=== PATIENT | female | born 1945 | race Caucasian/White ===

== ENCOUNTER 2016-08-08 18:29 | Inpatient (IN) | payer MEDICARE, OTHER ==
--- NOTE | 2016-08-08 20:35 | DIRPT ---
CLINICAL DATA: Fall, head injury hit right upper forehead EXAM: CT HEAD WITHOUT CONTRAST TECHNIQUE: Contiguous axial images were obtained from the base of the skull through the vertex without intravenous contrast. COMPARISON: None. FINDINGS: No skull fracture is noted. No intracranial hemorrhage, mass effect or midline shift. No acute cortical infarction. No mass lesion is noted on this unenhanced scan. Paranasal sinuses and mastoid air cells are unremarkable. No zygomatic fracture. IMPRESSION: No acute intracranial abnormality. Electronically Signed By: Alex Zhong M.D. On: 08/08/2016 20:33
--- NOTE | 2016-08-08 20:52 | EDPRACDOC ---
- General Chief Complaint: Wound Stated Complaint: FALL AT HOME Time Seen by Provider: 08/08/16 20:48 - History of Present Illness Onset: INCIDENT RESPONSE MANAGER HPI: PT FELL AT HOME, LAC TO FRONTAL SCALP, PT STATES SHE DOES NOT REMEMBER FALLING, PT COMPLAINS OF BILATERAL LEG SWELLING FOR UNKNOWN AMOUNT OF TIME, COMPLAINS OF PAIN IN BOTH LEGS FROM THIGHS DOWN, PT STATES THAT SHE LIVES ALONE, DOES NOT KNOW WHO CALLED EMS FOR HER. Pain Severity: Reports: Moderate Injuries/Pain Location: Reports: head Reason for Fall: Reports: unknown Loss of Consciousness: unsure Associated Symptoms (Fall): Reports: other. Denies: abdominal pain, chest pain , confusion, dizziness, headache, lightheadedness, muscle spasms, nausea/ vomiting, neck pain, ringing in ears, seizures, shortness of breath, slurred speech, trouble walking, vision changes Allergies/Adverse Reactions: Allergies No Known Allergies Allergy (Verified 08/08/16 18:49) Home Medications: Ambulatory Orders Aspirin [Chewable Aspirin] 81 mg PO DAILY 08/28/12 ED Past Medical History - History Reviewed Yes Nurses notes reviewed and agree except as marked - Patient Medical History Surgical History: Reports: Tonsillectomy/Adnoidectomy - Social Medical History Smoking Status: Never smoker ETOH: None Substance Abuse: None EDM Review of Systems - Review of Systems Constitutional: negative: Chills, Fever Eyes: negative: Blurred Vision, Double Vision Ears: negative: Drainage, Pain Throat: negative: Pain Nose: negative: Congestion, Discharge Respiratory: negative: Cough, Shortness of Breath, Wheezing Cardiovascular: Edema. negative: Chest Pain, Palpitations Gastrointestinal: negative: Diarrhea, Nausea, Pain, Vomiting Genitourinary: negative: Dysuria, Frequency Neurological: negative: Dizziness, Headache, Numbness, Weakness Musculoskeletal: No Symptoms Reported Integumentary: Wound Allergic/Immunologic: No Symptoms Reported - Physical Exam Constitutional: Alert (Awake), No apparent distress Oriented to: Time, Person, Place Last recorded Vital Signs: Last Vital Signs Temp 97.5 F 08/08/16 18:43 Pulse 82 08/08/16 18:43 Resp 20 08/08/16 18:43 BP 124/66 08/08/16 18:43 Pulse Ox 100 08/08/16 18:43 Oxygen Pulse Oxygen Saturation 100 O2 Device Room Air Oxygen Flow Rate Fraction of Inspired Oxygen ( FIO2) - HEENT Head: Laceration (1.5 CM LAC RIGHT FRONTAL SCALP, NO ACTIVE BLEEDING) Eye Exam: Normal (PERRL, EOMI, Sclera white) Oropharynx: Normal (Pharynx:Moist without exudate,Gums-no swelling) Tympanic Membrane: Normal ENT EAC: Normal TMJ: Normal Nose: No Symptoms Reported (septum midline) Neck: Normal (FROM, trachea at midline) - Respiratory/Cardiovascular Respiratory: Normal - CTA (BBS clear to auscultation without adventitious sounds ) Cardiovascular: Normal (RRR without murmur, gallop or rub) - GI Auscultation: Normal (NABS) Palpation: Normal (Soft,No rebound or guarding, non distended) Tenderness: Non tender Acevedo's Sign: Negative - Musculoskeletal Back: Normal (Non-Tender) Extremities: Edema (2 += BILATERAL LOWER EXT, ERYTHEMA TO KNEES, NO INCREASED TEMP) - Integumentary Skin: Warm, Dry, Other (SEE ABOVE) Lymphatics: Normal (no adenopathy) - Neurologic Memory Impaired: Normal Motor Function: Normal (Normal tone, Pulses 2+ No cyanosis or edema, FROM) Cranial Nerve: Normal (CN II-X11 intact sensation, strength 5/5) Cerebellar: Normal Mood Description: Normal Perception: Normal ED Injury/Fall Exam - Physical Exam Head Injury: lacerations Extremity Exam: pedal edema Skin: Warm, Dry - Casey Coma Score Best Eye Response ([place]): (4) open spontaneously Best Verbal Response ([place]): (5) oriented Best Motor Response ([place]): (6) obeys commands Casey Total: 15 ED Procedures - Suture/Laceration RIGHT FRONTAL SCALP Wound Length (cm): 1.5 Wound's Depth, Shape: linear Wound Explored: clean Irrigated w/ Saline (ccs): 20 Anesthesia: Lidocaine w/ Epi Volume Anesthetic (ccs): 5 Wound Repaired With: Biddle Number of Sutures: 4 (LEXY) Layer Closure?: No - Differential Diagnosis Contusion, Fall, ICH, SAH - Re-evaluation Re-evaluation 1 Re-evaluation Time: 22:00 (PT CONT TO COMPLAIN OF BILATERAL THIGH PAIN, PT STATES SHE DOES NOT HAVE ANYONE TO HELP HER AT HOME, STATES SHE DOES NOT REMEMBER THE LAST TIME SHE ATE.) - Results 08/08/16 21:04 08/08/16 21:04 08/08/16 22:30 Laboratory Results - last 24 hr 08/08/16 08/08/16 08/08/16 21:04 21:04 21:04 WBC 11.0 H RBC 3.34 L Hgb 9.9 L Hct 28.7 L MCV 86 MCH 29.7 MCHC 34.5 RDW 18.9 H Plt Count 478 H MPV 6.9 L Neut % (Auto) 86.3 H Lymph % (Auto) 5.6 L [place] % (Auto) 7.5 Eos % (Auto) 0.2 Baso % (Auto) 0.4 Absolute Neuts (auto) 9.46 H Absolute Lymphs (auto) 0.55 L PT 11.5 H INR 1.1 APTT 29.6 Sodium 132 L Potassium 3.9 Chloride 93 L Carbon Dioxide 27 Anion Gap 16 BUN 58 H Creatinine 2.00 H Estimated GFR (MDRD) 25 L Glucose 88 Calculated Osmolality 270 Calcium 8.8 Corrected Calcium 9.5 Total Bilirubin 0.9 AST 28 ALT 25 Alkaline Phosphatase 186 H Troponin I < 0.01 [id number] Pept 2320 H Total Protein 6.5 Albumin 3.3 L - EKG EKG #1 EKG Time: 21:10 -: Yes EKG interpreted by me Rate: bpm: 82 [place]: Normal Rhythm: NSR Block: None Hypertrophy: None ST: Nonsp Comments: NO OLD EKG FOR COMPARISON - Diagnostic Imaging CT HEAD Image interpreted by: Radiologist CT HEAD WITHOUT CONTRAST TECHNIQUE: Contiguous axial images were obtained from the base of the skull through the vertex without intravenous contrast. COMPARISON: None. FINDINGS: No skull fracture is noted. No intracranial hemorrhage, mass effect or midline shift. No acute cortical infarction. No mass lesion is noted on this unenhanced scan. Paranasal sinuses and mastoid air cells are unremarkable. No zygomatic fracture. IMPRESSION: No acute intracranial abnormality. CXR Image interpreted by: Radiologist PORTABLE CHEST 1 VIEW COMPARISON: Chest x-ray 03/19/2016. FINDINGS: Lung volumes are low. No consolidative airspace disease. No pleural effusions. No pneumothorax. No pulmonary nodule or mass noted. Pulmonary vasculature and the cardiomediastinal silhouette are within normal limits. Right internal jugular single-lumen deb cath with tip terminating in the mid superior vena cava. IMPRESSION: 1. 1. Low lung volumes without radiographic evidence of acute cardiopulmonary disease. 2. Atherosclerosis. - Additional Information OLD CHART REVIEWED, HOME HEALTH NURSING NOTE FROM MAR 2016 STATES THAT PT LIVES IN "HOARDING SITUATION", HOUSE VERY UNKEPT AND DANGEROUS WITH MULTIPLE FALL HAZARDS, MADE MENTION OF SEEKING [facility] PLACEMENT. PT STATES THAT NO ONE EVER TALKED TO HER ABOUT [facility] PLACEMENT. DISCUSSED WITH DR FREDERICK, HE WILL DISCUSS WITH THE HOSPITALIST - Departure Condition: Stable Final Diagnosis: Bilateral lower extremity edema, Cellulitis of both lower extremities, SCALP LAC, 1.5 CM, SIMPLE Accidental fall Qualifiers: Encounter type: initial encounter Qualified Code(s): W19.XXXA - Unspecified fall, initial encounter Education/Counseling Given To: Patient Education/Counseling Given Regarding: Diagnosis, Treatment, Prognosis, Follow Up Referrals: None,No Provider [Primary Care Provider] - One Week
[2016-08-08] MEDS ORDERED: SODIUM CHLORIDE 0.9% 10 ML FLUSH FLUSH PRN (20:53)
[2016-08-08 21:13] LABS: AUTOMATED BASOPHIL 0.4 % (0-2); AUTOMATED EOSINOPHIL 0.2 % (0-5); AUTOMATED LYMPH 5.6 % (17-44); AUTOMATED MONOCYTE 7.5 % (3-10); AUTOMATED NEUTROPHIL 86.3 % (45-76); MPV 6.9 fL (7.4-10.4)
--- NOTE | 2016-08-08 21:15 | DIRPT ---
CLINICAL DATA: 70-year-old female with history of trauma from a fall with laceration of the frontal scalp. Bilateral leg swelling. EXAM: PORTABLE CHEST 1 VIEW COMPARISON: Chest x-ray 03/19/2016. FINDINGS: Lung volumes are low. No consolidative airspace disease. No pleural effusions. No pneumothorax. No pulmonary nodule or mass noted. Pulmonary vasculature and the cardiomediastinal silhouette are within normal limits. Right internal jugular single-lumen deb cath with tip terminating in the mid superior vena cava. IMPRESSION: 1. 1. Low lung volumes without radiographic evidence of acute cardiopulmonary disease. 2. Atherosclerosis. Electronically Signed By: Hieu Vásquez M.D. On: 08/08/2016 21:13
[2016-08-08 21:25] LABS: BLOOD UREA NITROGEN 58 MG/DL (7-17); CALC CORRECTED 9.5 MG/DL (8.4-10.2); CALCIUM 8.8 MG/DL (8.4-10.2); CALCULATED OSMOLALITY 270 MOs/Kg (270-290); CHLORIDE 93 mEq/L (98-107); GLUCOSE 88 MG/DL (70-99); SODIUM LEVEL 132 mEq/L (137-146); TOTAL PROTEIN 6.5 G/DL (6.3-8.2)
[2016-08-08 21:32] LABS: PARTIAL THROMB. TIME 29.6 SEC (22-35); PT-INR 1.1
[2016-08-08] MEDS ORDERED: OXYCODONE HCL 5 MG TABLET PO ONE (21:46)
[2016-08-08] MEDS ORDERED: Lidocaine 2%-Epinephrine 1:100,000 20ml vial INF ONE (21:46)
[2016-08-08] MEDS ORDERED: BENZONATATE 100 MG PERLES PO PRN (23:00)
[2016-08-08] MEDS ORDERED: METOCLOPRAMIDE 10 MG/2 ML VIAL IV PRN (23:00)
[2016-08-08] MEDS ORDERED: ONDANSETRON HCL 4 MG/2 ML VIAL IV PRN (23:00)
[2016-08-08] MEDS ORDERED: NS 1,000 ML IV ONE (23:00)
[2016-08-08] MEDS ORDERED: NS IV ONE (23:00)
[2016-08-08] MEDS ORDERED: ACETAMINOPHEN 650 MG SUPP PR PRN (23:00)
[2016-08-08] MEDS ORDERED: SODIUM CHLORIDE 0.9% 3 ML FLUSH FLUSH PRN (23:00)
[2016-08-08] MEDS ORDERED: AMPICILLIN SULBACTAM IV ONE (23:00)
[2016-08-08] MEDS ORDERED: Albuterol/Ipratropium Neb 3 ML NEB NEB PRN (23:00)
[2016-08-08] MEDS ORDERED: DOCUSATE-SENNA CONCENTRATE TAB PO PRN (23:00)
--- NOTE | 2016-08-08 23:27 | HISTPHYS ---
- Chief Complaint syncope - History of Present Illness Elizabeth Lopez is a 70 year old woman who appears much older. She lives at home alone, but is severely demented and has been seen to be incapable of caring for herself. A neighbor checked on her this evening and found her lying on the floor with a cut on her head. Her house is extremely cluttered, the patient does not clean it and apparently either hoards things or has lost the ability to sort and prioritize use of her possessions. A report from the physical therapist who made a home health visit in March of last year provides some additional history to corroborate the neighbor's report. Adult protective services was informed at that time. The patient is unable to give any useful history. she did not remember falling, can not tell where she lives , does not know the date, does not know any of her past medical history. We have a written report stating that she had a left hip fracture last fall and bone mets to her spine at that time, although the primary is not clear in the report. The patient has a port-a-cath. She did not remember that she had a port-a-cath, does not know why she has it, can not recall ever having had surgery. She does not know what type of cancer she had. She does not know the names of her doctors. She did hit her head and possibly lost consciousness for an unknown period of time. The neighbor is not certain if she was alert or unconscious when she first found her. The laceration to her right forehead has been repaired in the ED. No fracture or subdural hematoma or intracranial hemorrhage is evident on CT scan. - Medical History Cardiac History: Reports: No Significant History Respiratory History: Reports: No Significant History GI/ History: Reports: No Significant History Musculoskeletal History: Reports: Osteoarthritis (s/p L hip fracture- probably pathologic from cancer), Other Systemic History: Reports: Cancer (unknown primary, mets to spine, hip) Neurological History: Reports: Dementia Psychological History: Denies: Depression - Surgical History Reports: Hysterectomy, Tonsillectomy/Adnoidectomy, Other (L hip ORIF, portacath) - Medictions/Allergies Allergies No Known Allergies Allergy (Verified 08/08/16 18:49) Current Medication List: Reviewed Home Medications Aspirin [Chewable Aspirin] 81 mg PO DAILY 08/28/12 - Family History Reports: Other (unable to obtain) - Social History Travel Outside of [place] in the Last 3 Months?: No Lives: Alone Smoking Status: Never smoker Social History: Denies: Alcohol Use - Review of Systems Yes Review of systems cannot be obtained due to the patient's medical condition - Physical Exam Vital Signs: Initial Vitals Temperature 97.5 F 08/08/16 18:43 Pulse Rate 82 08/08/16 18:43 Respiratory Rate 20 08/08/16 18:43 Blood Pressure 124/66 08/08/16 18:43 Pulse Oxygen Saturation 100 08/08/16 18:43 Constitutional: No apparent distress, Cachectic, Confused Oriented to: Person - HEENT Head: Laceration (R restorationist 5 cm- closed with crystal), Swelling (hematoma), Tender Eye: Normal (PERRL: EOMI) Oropharynx: Normal, Membranes Dry, Other (dentures). negative: Drooling, Exudate, Red Tympanic Membrane: Dull ENT EAC: Normal Nose: No Symptoms Reported. negative: Bleeding, Congestion, Discharge, Deformity Respiratory: Normal - CTA Cardiovascular: Normal (regular rhythm and rate, no JVD or carotid bruits, has portacath in R subclavian area). negative: Diastolic murmur, Systolic murmur - GI Auscultation: Normal Palpation: Normal (obese, soft, poor muscle tone, no palpable mass or fluid wave ). negative: Enlarged liver, Enlarged spleen Tenderness: Non tender Acevedo's Sign: Negative Rectal Exam: Normal, Heme negative stool. negative: Mass Stool: Brown - Musculoskeletal Back: Normal, No Palpable Step-off Extremities: Edema (4+ edema feet to knees bilaterally,with significant erythematous rash), Pedal Edema, Other (erythematous rash on distal legs, inflamed confluent areas) Spine: full range of motion, normal alignment, normal inspection - Integumentary Skin: Warm, Dry, Rash (erythematous rash on distal legs, inflamed confluent areas) Lymphatics: Normal - Neurologic Memory Impaired: Short-term, Long-term Motor Function: Unable to Test Cranial Nerve: Normal Cerebellar: Unable to Test Mood Description: Flat Thought: Rambling Conversation Perception: Other (child-like, very simple, has difficulty processing 2 or 3 step directions.) - Focused CV Perfusion Exam Vital Signs: Last Vital Signs Temp 97.5 F 08/08/16 18:43 Pulse 83 08/08/16 21:51 Resp 24 01/18/17 21:51 BP 126/60 08/08/16 21:51 Pulse Ox 100 08/08/16 21:51 - Lab Results Laboratory Tests 08/08/16 08/08/16 08/08/16 21:04 21:04 21:04 WBC 11.0 H Hgb 9.9 L Hct 28.7 L RDW 18.9 H Plt Count 478 H Neut % (Auto) 86.3 H Lymph % (Auto) 5.6 L [place] % (Auto) 7.5 PT 11.5 H INR 1.1 APTT 29.6 Sodium 132 L Potassium 3.9 Chloride 93 L Carbon Dioxide 27 Anion Gap 16 BUN 58 H Creatinine 2.00 H Estimated GFR (MDRD) 25 L Calculated Osmolality 270 Corrected Calcium 9.5 AST 28 ALT 25 Alkaline Phosphatase 186 H Troponin I < 0.01 Fih-[id number]-[id number] Pept 2320 H Total Protein 6.5 Albumin 3.3 L Urine Color Urine Clarity Urine pH Ur Specific [place] Urine Protein Urine Glucose (UA) Urine Ketones Urine Nitrite Urine RBC Urine WBC Urine WBC Clumps Ur Renal Epithelial Cell Urine Bacteria 08/08/16 23:20 WBC Hgb Hct RDW Plt Count Neut % (Auto) Lymph % (Auto) [place] % (Auto) PT INR APTT Sodium Potassium Chloride Carbon Dioxide Anion Gap BUN Creatinine Estimated GFR (MDRD) Calculated Osmolality Corrected Calcium AST ALT Alkaline Phosphatase Troponin I [id number] Pept Total Protein Albumin Urine Color Yellow Urine Clarity Hazy Urine pH 5.0 Ur Specific [place] 1.035 Urine Protein 1+ H Urine Glucose (UA) Neg Urine Ketones 1+ H Urine Nitrite Neg Urine RBC 2-5 Urine WBC 40-50 H Urine WBC Clumps Present H Ur Renal Epithelial Cell Occ H Urine Bacteria 1+ H - Diagnostic Findings CXR: IMPRESSION: 1. 1. Low lung volumes without radiographic evidence of acute cardiopulmonary disease. 2. Atherosclerosis. Electronically Signed By: Hieu Vásquez M.D. On: 08/08/2016 21:13 EKG: sinus rhythm, 82 bpm, nonspecific ST-changes CT Head: FINDINGS: No skull fracture is noted. No intracranial hemorrhage, mass effect or midline shift. No acute cortical infarction. No mass lesion is noted on this unenhanced scan. Paranasal sinuses and mastoid air cells are unremarkable. No zygomatic fracture. IMPRESSION: No acute intracranial abnormality. Electronically Signed By: Alex Zhong M.D. On: 08/08/2016 20:33 - Assessment (1) Acute renal failure N17.9 - ACUTE KIDNEY FAILURE, UNSPECIFIED Acute Present on Admission: Yes Qualifiers: Acute renal failure type: with other specified pathological lesion Qualified Code(s): N17.8 - Other acute kidney failure Admit, start IV fluids. Begin appropriate medications for HCVD and to enhance renal perfusion. Follow renal function daily. Patient also needs diuresis due to her severe venous stasis in her lower extremities. (2) Cellulitis of both lower extremities L03.115 - CELLULITIS OF RIGHT LOWER LIMB; L03.116 - CELLULITIS OF LEFT LOWER LIMB Acute Present on Admission: Yes Obtain blood cultures, begin antibiotics. (3) Anemia D64.9 - ANEMIA, UNSPECIFIED Acute Present on Admission: Yes Qualifiers: Anemia type: other cause Iron deficiency anemia type: I Vitamin B12 deficiency anemia type: V Folate deficiency anemia type: F Bone marrow failure anemia type: B Hemolytic anemia type: H Other causes of anemia: chronic disease, neoplastic Qualified Code(s): D63.0 - Anemia in neoplastic disease Monitor H/H to be sure patient is not bleeding; check stools for occult blood. (4) FTT (failure to thrive) in adult R62.7 - ADULT FAILURE TO THRIVE Acute Present on Admission: Yes Patient is not capable of caring for herself; needs placement in extended care facility. (5) Dementia associated with other underlying disease F02.80 - DEMENTIA IN OTH DISEASES CLASSD ELSWHR W/O BEHAVRL DISTURB Acute Present on Admission: Yes Qualifiers: Dementia behavioral disturbance: without behavioral disturbance Qualified Code(s): F02.80 - Dementia in other diseases classified elsewhere without behavioral disturbance Severe dementia, patient is not capable of self care. If family members can not be located, may need to seek/appoint a legal guardian. (6) Accidental fall W19.XXXA - UNSPECIFIED FALL, INITIAL ENCOUNTER Acute Present on Admission: Yes Qualifiers: Encounter type: initial encounter Qualified Code(s): W19.XXXA - Unspecified fall, initial encounter Has laceration of forehead which has been repaired. Do neurochecks q 4 hr x 48 hr, then maintain vigilance for delayed effects of concussion. Case Care Discussed with: Nursing Staff, Resource Management Total Time: 65 min Critical Care: No Couseling Time (>50% in counseling/coordination): No Code: 01648
[2016-08-09 00:18] LABS: RENAL EPITH OCC; WBC/URINE 40-50 (0-5)
[2016-08-09 00:24] LABS: LEUKOCYTES/URINE 3+ (NEGATIVE); NITRITE/URINE NEG (NEGATIVE); URINE OCCULT BLOOD NEG (NEG/TRACE)
[2016-08-09] MEDS: ENOXAPARIN 40 MG/0.4 ML PFS SQ SCH ×2 (01:50→17:24)
[2016-08-09] MEDS: Albuterol/Ipratropium Neb 3 ML NEB NEB SCH ×4 (02:44→20:15)
[2016-08-09] MEDS: NS 1,000 ML IV SCH ×2 (04:42→14:39)
[2016-08-09] MEDS: SODIUM CHLORIDE 0.9% 3 ML FLUSH FLUSH SCH ×2 (05:08→16:45)
[2016-08-09 05:27] LABS: AUTOMATED BASOPHIL 0.5 % (0-2); AUTOMATED LYMPH 4.8 % (17-44); AUTOMATED MONOCYTE 7.8 % (3-10); AUTOMATED NEUTROPHIL 85.9 % (45-76); MPV 6.9 fL (7.4-10.4)
[2016-08-09 05:33] LABS: BLOOD UREA NITROGEN 54 MG/DL (7-17); CALCIUM 8.1 MG/DL (8.4-10.2); CALCULATED OSMOLALITY 269 MOs/Kg (270-290); CHLORIDE 96 mEq/L (98-107); GLUCOSE 75 MG/DL (70-99); SODIUM LEVEL 132 mEq/L (137-146)
--- NOTE | 2016-08-09 10:17 | GENMEDPROG ---
Chief Complaint: Feels okay. Mild confusion. However she knows that she is in [facility]. Appears chronically ill Notes Reviewed: Yes Events from last night noted and discussed with Clinical Staff Current Medication List: Reviewed Currently: Denies: Cough, Wheezing, FONSECA, SOB - Physical Examination Vital Signs and I&O: Last Vital Signs Temp 97.6 F 08/09/16 09:20 Pulse 88 08/09/16 09:20 Resp 16 08/09/16 09:20 BP 112/58 L 08/09/16 09:20 Pulse Ox 98 08/09/16 09:20 Oxygen Pulse Oxygen Saturation 98 O2 Device Room Air Oxygen Flow Rate Fraction of Inspired Oxygen ( FIO2) Intake & Output 08/06/16 08/07/16 08/08/16 08/09/16 23:59 23:59 23:59 23:59 Intake Total 1456 Output Total 310 Balance 1146 Patient's weight 81.873 kg General: Alert, Cooperative, No acute distress. negative: Oriented x3 (Very mild confusion), Well appearing (Chronically ill-appearing) HEENT: Normal, PERRLA, EOMI, Anicteric Sclera Neck: Non-tender, Full range of motion, Normal Trachea alignment, Normal inspection. negative: JVD Lymphatics: Normal. negative: Adenopathy Respiratory: Normal - CTA Cardiovascular: Regular rate and rhythm, No Gallops,Rubs/Murmurs GI: Normal bowel sounds, Non tender, No hepatospenomegaly, No masses Extremities/Musculoskeletal: Normal pulses. negative: Tenderness, Swelling, Edema Skin: Warm,Dry and Intact, No breakdown, No significant lesion, Rash, Erythema ( cellulitis with stasis dermatitis), Warmth. negative: No rashes Neurological: Normal speech, Strength at 5/5 X4 ext, Normal tone, Cranial nerves 3-12 NL Psych/Mental Status: Appropriate, Normal Affect, Cooperative Lab/DI/Studies Reviewed: Laboratory Results - last 24 hr 08/08/16 08/08/16 08/08/16 21:04 21:04 21:04 WBC 11.0 H RBC 3.34 L Hgb 9.9 L Hct 28.7 L MCV 86 MCH 29.7 MCHC 34.5 RDW 18.9 H Plt Count 478 H MPV 6.9 L Neut % (Auto) 86.3 H Lymph % (Auto) 5.6 L Parker % (Auto) 7.5 Eos % (Auto) 0.2 Baso % (Auto) 0.4 Absolute Neuts (auto) 9.46 H Absolute Lymphs (auto) 0.55 L PT 11.5 H INR 1.1 APTT 29.6 Sodium 132 L Potassium 3.9 Chloride 93 L Carbon Dioxide 27 Anion Gap 16 BUN 58 H Creatinine 2.00 H Estimated GFR (MDRD) 25 L Glucose 88 Calculated Osmolality 270 Calcium 8.8 Corrected Calcium 9.5 Total Bilirubin 0.9 AST 28 ALT 25 Alkaline Phosphatase 186 H Troponin I < 0.01 [id number]-D-[id number] Pept 2320 H Total Protein 6.5 Albumin 3.3 L Urine Color Urine Clarity Urine pH Ur Specific [place] Urine Protein Urine Glucose (UA) Urine Ketones Urine Occult Blood Urine Nitrite Urine Bilirubin Urine Urobilinogen Ur Leukocyte Esterase Urine RBC Urine WBC Urine WBC Clumps Ur Epithelial Cells Ur Renal Epithelial Cell Urine Bacteria Hyaline Casts 08/08/16 08/09/16 08/09/16 23:20 01:40 05:00 WBC RBC Hgb Hct MCV MCH MCHC RDW Plt Count MPV Neut % (Auto) Lymph % (Auto) Parker % (Auto) Eos % (Auto) Baso % (Auto) Absolute Neuts (auto) Absolute Lymphs (auto) PT INR APTT Sodium Potassium Chloride Carbon Dioxide Anion Gap BUN Creatinine Estimated GFR (MDRD) Glucose Calculated Osmolality Calcium Corrected Calcium Total Bilirubin AST ALT Alkaline Phosphatase Troponin I < 0.01 < 0.01 Jtp-L-Lwmxsytxlod Pept Total Protein Albumin Urine Color Yellow Urine Clarity Hazy Urine pH 5.0 Ur Specific [place] 1.035 Urine Protein 1+ H Urine Glucose (UA) Neg Urine Ketones 1+ H Urine Occult Blood Neg Urine Nitrite Neg Urine Bilirubin Neg Urine Urobilinogen 0.2 Ur Leukocyte Esterase 3+ H Urine RBC 2-5 Urine WBC 40-50 H Urine WBC Clumps Present H Ur Epithelial Cells 3+ Ur Renal Epithelial Cell Occ H Urine Bacteria 1+ H Hyaline Casts 2-5 H 08/09/16 08/09/16 05:00 05:00 WBC 9.8 RBC 3.02 L Hgb 8.8 L D Hct 26.4 L MCV 87 MCH 29.3 MCHC 33.5 RDW 19.0 H Plt Count 414 H MPV 6.9 L Neut % (Auto) 85.9 H Lymph % (Auto) 4.8 L Parker % (Auto) 7.8 Eos % (Auto) 1.0 Baso % (Auto) 0.5 Absolute Neuts (auto) 8.33 H Absolute Lymphs (auto) 0.39 L PT INR APTT Sodium 132 L Potassium 3.6 Chloride 96 L Carbon Dioxide 29 Anion Gap 11 BUN 54 H Creatinine 1.80 H Estimated GFR (MDRD) 28 L Glucose 75 Calculated Osmolality 269 L Calcium 8.1 L Corrected Calcium Total Bilirubin AST ALT Alkaline Phosphatase Troponin I Ymc-M-Ubxwlocgziu Pept Total Protein Albumin Urine Color Urine Clarity Urine pH Ur Specific [place] Urine Protein Urine Glucose (UA) Urine Ketones Urine Occult Blood Urine Nitrite Urine Bilirubin Urine Urobilinogen Ur Leukocyte Esterase Urine RBC Urine WBC Urine WBC Clumps Ur Epithelial Cells Ur Renal Epithelial Cell Urine Bacteria Hyaline Casts - Assessment (1) Cellulitis of both lower extremities Acute L03.115 - CELLULITIS OF RIGHT LOWER LIMB; L03.116 - CELLULITIS OF LEFT LOWER LIMB Comment/Plan: Continue antibiotics, leg elevation. Treat edema. Likely significant component of stasis dermatitis as opposed to acute cellulitis. (2) Accidental fall Acute W19.XXXA - UNSPECIFIED FALL, INITIAL ENCOUNTER Qualifiers: Encounter type: initial encounter Qualified Code(s): W19.XXXA - Unspecified fall, initial encounter Comment/Plan: Has laceration of forehead which has been repaired. Do neurochecks q 4 hr x 48 hr, then maintain vigilance for delayed effects of concussion. (3) Acute renal failure Acute N17.9 - ACUTE KIDNEY FAILURE, UNSPECIFIED Qualifiers: Acute renal failure type: with other specified pathological lesion Qualified Code(s): N17.8 - Other acute kidney failure Comment/Plan: Concerned that there may be a chronic component. Creatinine is slightly better today decreasing from 2.0 down to 1.8. Continue to monitor (4) Anemia Acute D64.9 - ANEMIA, UNSPECIFIED Qualifiers: Anemia type: other cause Iron deficiency anemia type: I Vitamin B12 deficiency anemia type: V Folate deficiency anemia type: F Bone marrow failure anemia type: B Hemolytic anemia type: H Other causes of anemia: chronic disease, neoplastic Qualified Code(s): D63.0 - Anemia in neoplastic disease Comment/Plan: This is significant. With hydration she has dropped down to 8.8. Does not appear to be actively bleeding. Hemoccult stools and check iron panel B12 and folates. (5) Bilateral lower extremity edema Acute R60.0 - LOCALIZED EDEMA Comment/Plan: This is moderate to severe appears more chronic. Likely component of dependent stasis edema and dermatitis (6) Dementia associated with other underlying disease Acute F02.80 - DEMENTIA IN OTH DISEASES CLASSD ELSWHR W/O BEHAVRL DISTURB Qualifiers: Dementia behavioral disturbance: without behavioral disturbance Qualified Code(s): F02.80 - Dementia in other diseases classified elsewhere without behavioral disturbance Comment/Plan: More oriented today. She knows that she is in the hospital in [place]. Cognition does appear slow but she states that she still drives and is able to go to the store and get food and care for herself. Physical therapy evaluation for strength and mobility. Continue to monitor mental status. (7) FTT (failure to thrive) in adult Acute R62.7 - ADULT FAILURE TO THRIVE Comment/Plan: Treat above issues. Physical therapy and occupational therapy evaluations to assess functional capacity. Case Care Discussed with: Patient, Nursing Staff, Resource Management
[2016-08-09 10:51] LABS: % SATURATION 10.1 % (15-50)
[2016-08-09] MEDS: NS IV SCH ×2 (11:02→22:25)
[2016-08-09] MEDS: AMPICILLIN SULBACTAM IV SCH ×2 (11:02→22:25)
[2016-08-09] MEDS ORDERED: METOCLOPRAMIDE 10 MG/2 ML VIAL IV PRN (11:35)
[2016-08-09 11:49] LABS: FOLATES 3.81 ng/mL (>2.76)
[2016-08-09] MEDS ORDERED: Vaccine Screening Complete SCH (12:00)
[2016-08-09] MEDS: SIMETHICONE 80 MG TAB PO PRN (20:07)
[2016-08-09] MEDS: ACETAMINOPHEN 325 MG/TAB TABLET PO PRN (20:36)
[2016-08-09] MEDS: TEMAZEPAM 15 MG CAP PO PRN (22:23)
[2016-08-10] MEDS: NS 1,000 ML IV SCH ×4 (00:21→22:34)
[2016-08-10] MEDS: Albuterol/Ipratropium Neb 3 ML NEB NEB SCH ×3 (02:05→14:30)
[2016-08-10] MEDS: SODIUM CHLORIDE 0.9% 3 ML FLUSH FLUSH SCH ×2 (05:12→17:12)
[2016-08-10 07:23] LABS: BLOOD UREA NITROGEN 41 MG/DL (7-17); CALCIUM 8.1 MG/DL (8.4-10.2); CALCULATED OSMOLALITY 265 MOs/Kg (270-290); CHLORIDE 99 mEq/L (98-107); GLUCOSE 78 MG/DL (70-99); SODIUM LEVEL 133 mEq/L (137-146)
[2016-08-10] MEDS ORDERED: FERUMOXYTOL 510 MG in NS 100 ML IV ONE (09:00)
[2016-08-10] MEDS: ACETAMINOPHEN 325 MG/TAB TABLET PO PRN (09:48)
[2016-08-10] MEDS: NS IV SCH ×3 (09:55→21:15)
[2016-08-10] MEDS: AMPICILLIN SULBACTAM IV SCH ×3 (09:55→21:15)
--- NOTE | 2016-08-10 14:22 | GENMEDPROG ---
Chief Complaint: Doing better. Appears chronically ill. Currently: Denies: Cough, Wheezing, FONSECA, SOB - Physical Examination Vital Signs and I&O: Last Vital Signs Temp 97.6 F 08/10/16 06:00 Pulse 74 08/10/16 06:00 Resp 18 08/10/16 06:00 BP 114/63 08/10/16 06:00 Pulse Ox 100 08/10/16 06:00 Oxygen Pulse Oxygen Saturation 100 O2 Device Room Air Oxygen Flow Rate Fraction of Inspired Oxygen ( FIO2) Intake & Output 08/07/16 08/08/16 08/09/16 08/10/16 23:59 23:59 23:59 23:59 Intake Total 3973 1271 Output Total 910 275 Balance 3063 996 Patient's weight 81.873 kg 82.781 kg General: Alert, Cooperative, No acute distress. negative: Oriented x3 (Very mild confusion), Well appearing (Chronically ill-appearing) HEENT: Normal, PERRLA, EOMI, Anicteric Sclera Neck: Non-tender, Full range of motion, Normal Trachea alignment, Normal inspection. negative: JVD Lymphatics: Normal. negative: Adenopathy Respiratory: Normal - CTA Cardiovascular: Regular rate and rhythm, No Gallops,Rubs/Murmurs GI: Normal bowel sounds, Non tender, No hepatospenomegaly, No masses Extremities/Musculoskeletal: Normal pulses. negative: Tenderness, Swelling, Edema Skin: Warm,Dry and Intact, No breakdown, No significant lesion, Rash, Erythema ( cellulitis with stasis dermatitis), Warmth. negative: No rashes Neurological: Normal speech, Strength at 5/5 X4 ext, Normal tone, Cranial nerves 3-12 NL Psych/Mental Status: Appropriate, Normal Affect, Cooperative - Assessment (1) Cellulitis of both lower extremities Acute L03.115 - CELLULITIS OF RIGHT LOWER LIMB; L03.116 - CELLULITIS OF LEFT LOWER LIMB Comment/Plan: Some better today. Continue antibiotics. Encourage activity and ambulation. Will ask physical therapy to see in consultation. (2) Accidental fall Acute W19.XXXA - UNSPECIFIED FALL, INITIAL ENCOUNTER Qualifiers: Encounter type: initial encounter Qualified Code(s): W19.XXXA - Unspecified fall, initial encounter Comment/Plan: Has laceration of forehead which has been repaired. Stable and healing well. (3) Acute renal failure Acute N17.9 - ACUTE KIDNEY FAILURE, UNSPECIFIED Qualifiers: Acute renal failure type: with other specified pathological lesion Qualified Code(s): N17.8 - Other acute kidney failure Comment/Plan: Creatinine much better. Down to 1.4. Continue IV fluids, supportive care and monitor. (4) Anemia Acute D64.9 - ANEMIA, UNSPECIFIED Qualifiers: Anemia type: other cause Iron deficiency anemia type: I Vitamin B12 deficiency anemia type: V Folate deficiency anemia type: F Bone marrow failure anemia type: B Hemolytic anemia type: H Other causes of anemia: chronic disease, neoplastic Qualified Code(s): D63.0 - Anemia in neoplastic disease Comment/Plan: She is very iron deficient. Will give IV Feraheme. Currently on hospice. Can follow up with primary physician (5) Bilateral lower extremity edema Acute R60.0 - LOCALIZED EDEMA Comment/Plan: This is moderate to severe appears more chronic. Likely component of dependent stasis edema and dermatitis (6) Dementia associated with other underlying disease Acute F02.80 - DEMENTIA IN OTH DISEASES CLASSD ELSWHR W/O BEHAVRL DISTURB Qualifiers: Dementia behavioral disturbance: without behavioral disturbance Qualified Code(s): F02.80 - Dementia in other diseases classified elsewhere without behavioral disturbance Comment/Plan: Mild to moderate dementia. Mostly oriented at times. Continue supportive care. Currently on hospice and likely needs nursing facility placement. (7) FTT (failure to thrive) in adult Acute R62.7 - ADULT FAILURE TO THRIVE Comment/Plan: Treat above issues. Physical therapy and occupational therapy evaluations to assess functional capacity. Case Care Discussed with: Patient, Nursing Staff, Physical Therapy, Resource Management, Respiratory Therapy, Crew Boss
[2016-08-10] MEDS: ENOXAPARIN 40 MG/0.4 ML PFS SQ SCH (17:12)
[2016-08-10] MEDS: TRAMADOL HCL 50 MG TAB PO PRN (21:12)
[2016-08-10] MEDS: TEMAZEPAM 15 MG CAP PO PRN (22:35)
[2016-08-11] MEDS: NS IV SCH ×4 (03:55→22:00)
[2016-08-11] MEDS: TRAMADOL HCL 50 MG TAB PO PRN ×2 (03:55→16:39)
[2016-08-11] MEDS: AMPICILLIN SULBACTAM IV SCH ×4 (03:55→22:00)
[2016-08-11 05:28] VITALS: BMI 32.2
[2016-08-11] MEDS: SODIUM CHLORIDE 0.9% 3 ML FLUSH FLUSH SCH ×2 (05:57→17:29)
[2016-08-11 06:40] LABS: BLOOD UREA NITROGEN 31 MG/DL (7-17); CALCIUM 8.1 MG/DL (8.4-10.2); CALCULATED OSMOLALITY 261 MOs/Kg (270-290); CHLORIDE 101 mEq/L (98-107); GLUCOSE 77 MG/DL (70-99); SODIUM LEVEL 132 mEq/L (137-146)
[2016-08-11] MEDS: NS 1,000 ML IV SCH ×3 (08:21→22:00)
--- NOTE | 2016-08-11 12:52 | GENMEDPROG ---
Chief Complaint: Cellulitis improving. No complaints currently. Awaiting [facility] facility placement. Notes Reviewed: Yes Events from last night noted and discussed with Clinical Staff Current Medication List: Reviewed Currently: Denies: Cough, Wheezing, FONSECA, SOB - Physical Examination Vital Signs and I&O: Last Vital Signs Temp 98.4 F 08/11/16 04:45 Pulse 87 08/11/16 04:45 Resp 16 08/11/16 04:45 BP 125/62 08/11/16 04:45 Pulse Ox 95 08/11/16 04:45 Oxygen Pulse Oxygen Saturation 95 O2 Device Room Air Oxygen Flow Rate Fraction of Inspired Oxygen ( FIO2) Intake & Output 08/08/16 08/09/16 08/10/16 08/11/16 23:59 23:59 23:59 23:59 Intake Total 3973 2887 1129 Output Total 910 650 650 Balance 3063 9646 479 Patient's weight 81.873 kg 82.781 kg 82.508 kg General: Alert, Cooperative, No acute distress. negative: Oriented x3 (Very mild confusion), Well appearing (Chronically ill-appearing) HEENT: Normal, PERRLA, EOMI, Anicteric Sclera Neck: Non-tender, Full range of motion, Normal Trachea alignment, Normal inspection. negative: JVD Lymphatics: Normal. negative: Adenopathy Respiratory: Normal - CTA Cardiovascular: Regular rate and rhythm, No Gallops,Rubs/Murmurs GI: Normal bowel sounds, Non tender, No hepatospenomegaly, No masses Extremities/Musculoskeletal: Normal pulses. negative: Tenderness, Swelling, Edema Skin: Warm,Dry and Intact, No breakdown, No significant lesion, Rash, Erythema ( cellulitis with stasis dermatitis), Warmth. negative: No rashes Neurological: Normal speech, Strength at 5/5 X4 ext, Normal tone, Cranial nerves 3-12 NL Psych/Mental Status: Appropriate, Normal Affect, Cooperative Lab/DI/Studies Reviewed: Laboratory Results - last 24 hr 08/10/16 08/11/16 08/11/16 18:20 06:05 06:05 Hgb 8.5 L 8.0 L Hct 25.5 L 23.6 L Sodium 132 L Potassium 3.5 Chloride 101 Carbon Dioxide 26 Anion Gap 9 BUN 31 H Creatinine 1.10 H Estimated GFR (MDRD) 49 L Glucose 77 Calculated Osmolality 261 L Calcium 8.1 L - Assessment (1) Cellulitis of both lower extremities Acute L03.115 - CELLULITIS OF RIGHT LOWER LIMB; L03.116 - CELLULITIS OF LEFT LOWER LIMB Comment/Plan: Overall improved. Continue antibiotics. Leg elevation and physical therapy as tolerated. (2) Accidental fall Acute W19.XXXA - UNSPECIFIED FALL, INITIAL ENCOUNTER Qualifiers: Encounter type: initial encounter Qualified Code(s): W19.XXXA - Unspecified fall, initial encounter Comment/Plan: Has laceration of forehead which has been repaired. Stable and healing well. (3) Acute renal failure Resolved N17.9 - ACUTE KIDNEY FAILURE, UNSPECIFIED Qualifiers: Acute renal failure type: with other specified pathological lesion Qualified Code(s): N17.8 - Other acute kidney failure Comment/Plan: Resolved. creatinine 1.1. (4) Anemia Acute D64.9 - ANEMIA, UNSPECIFIED Qualifiers: Anemia type: other cause Iron deficiency anemia type: I Vitamin B12 deficiency anemia type: V Folate deficiency anemia type: F Bone marrow failure anemia type: B Hemolytic anemia type: H Other causes of anemia: chronic disease, neoplastic Qualified Code(s): D63.0 - Anemia in neoplastic disease Comment/Plan: Given IV Feraheme. Currently on hospice. (5) Bilateral lower extremity edema Acute R60.0 - LOCALIZED EDEMA Comment/Plan: This is moderate to severe appears more chronic. Likely component of dependent stasis edema and dermatitis (6) Dementia associated with other underlying disease Acute F02.80 - DEMENTIA IN OTH DISEASES CLASSD ELSWHR W/O BEHAVRL DISTURB Qualifiers: Dementia behavioral disturbance: without behavioral disturbance Qualified Code(s): F02.80 - Dementia in other diseases classified elsewhere without behavioral disturbance Comment/Plan: Mild to moderate dementia. Mostly oriented at times. Continue supportive care. Currently on hospice and [facility]. (7) FTT (failure to thrive) in adult Acute R62.7 - ADULT FAILURE TO THRIVE Comment/Plan: Treat above issues. Physical therapy and occupational therapy evaluations to assess functional capacity. Case Care Discussed with: Patient, Nursing Staff, Resource Management
[2016-08-11] MEDS: ENOXAPARIN 40 MG/0.4 ML PFS SQ SCH (17:28)
[2016-08-12] MEDS: AMPICILLIN SULBACTAM IV SCH ×4 (03:57→22:17)
[2016-08-12] MEDS: NS IV SCH ×4 (03:57→22:17)
[2016-08-12] MEDS: NS 1,000 ML IV SCH ×3 (05:41→20:53)
[2016-08-12] MEDS: SODIUM CHLORIDE 0.9% 3 ML FLUSH FLUSH SCH ×2 (05:43→16:52)
--- NOTE | 2016-08-12 10:15 | GENMEDPROG ---
Currently: Denies: Cough, Wheezing, FONSECA, SOB - Physical Examination Vital Signs and I&O: Last Vital Signs Temp 98.2 F 08/12/16 09:41 Pulse 89 08/12/16 09:41 Resp 20 08/12/16 09:41 BP 129/78 08/12/16 09:41 Pulse Ox 98 08/12/16 09:41 Oxygen Pulse Oxygen Saturation 98 O2 Device Room Air Oxygen Flow Rate Fraction of Inspired Oxygen ( FIO2) Intake & Output 08/09/16 08/10/16 08/11/16 08/12/16 23:59 23:59 23:59 23:59 Intake Total 3973 2887 2847 1259 Output Total 487 119 1197 200 Balance 3063 2237 1772 1059 Patient's weight 81.873 kg 82.781 kg 82.508 kg General: Alert, Cooperative, No acute distress. negative: Oriented x3 (Very mild confusion), Well appearing (Chronically ill-appearing) HEENT: Normal, PERRLA, EOMI, Anicteric Sclera Neck: Non-tender, Full range of motion, Normal Trachea alignment, Normal inspection. negative: JVD Lymphatics: Normal. negative: Adenopathy Respiratory: Normal - CTA Cardiovascular: Regular rate and rhythm, No Gallops,Rubs/Murmurs GI: Normal bowel sounds, Non tender, No hepatospenomegaly, No masses Extremities/Musculoskeletal: Normal pulses. negative: Tenderness, Swelling, Edema Skin: Warm,Dry and Intact, No breakdown, No significant lesion, Rash, Erythema ( cellulitis with stasis dermatitis), Warmth. negative: No rashes Neurological: Normal speech, Strength at 5/5 X4 ext, Normal tone, Cranial nerves 3-12 NL Psych/Mental Status: Appropriate, Normal Affect, Cooperative - Assessment (1) Acute renal failure Resolved N17.9 - ACUTE KIDNEY FAILURE, UNSPECIFIED Qualifiers: Acute renal failure type: with other specified pathological lesion Qualified Code(s): N17.8 - Other acute kidney failure Comment/Plan: Resolved. creatinine 1.1. (2) Cellulitis of both lower extremities Acute L03.115 - CELLULITIS OF RIGHT LOWER LIMB; L03.116 - CELLULITIS OF LEFT LOWER LIMB Comment/Plan: Overall improved. Continue antibiotics. Leg elevation and physical therapy as tolerated. (3) Anemia Acute D64.9 - ANEMIA, UNSPECIFIED Qualifiers: Anemia type: other cause Iron deficiency anemia type: I Vitamin B12 deficiency anemia type: V Folate deficiency anemia type: F Bone marrow failure anemia type: B Hemolytic anemia type: H Other causes of anemia: chronic disease, neoplastic Qualified Code(s): D63.0 - Anemia in neoplastic disease Comment/Plan: Given IV Feraheme. Currently on hospice. (4) FTT (failure to thrive) in adult Acute R62.7 - ADULT FAILURE TO THRIVE Comment/Plan: Treat above issues. Physical therapy and occupational therapy evaluations to assess functional capacity. (5) Dementia associated with other underlying disease Acute F02.80 - DEMENTIA IN OTH DISEASES CLASSD ELSWHR W/O BEHAVRL DISTURB Qualifiers: Dementia behavioral disturbance: without behavioral disturbance Qualified Code(s): F02.80 - Dementia in other diseases classified elsewhere without behavioral disturbance Comment/Plan: Mild to moderate dementia. Mostly oriented at times. Continue supportive care. Currently on hospice and awaiting snf facility placement. (6) Accidental fall Acute W19.XXXA - UNSPECIFIED FALL, INITIAL ENCOUNTER Qualifiers: Encounter type: initial encounter Qualified Code(s): W19.XXXA - Unspecified fall, initial encounter Comment/Plan: Has laceration of forehead which has been repaired. Stable and healing well.
[2016-08-12] MEDS: ENOXAPARIN 40 MG/0.4 ML PFS SQ SCH (16:51)
[2016-08-13] MEDS: TRAMADOL HCL 50 MG TAB PO PRN ×2 (00:22→21:31)
[2016-08-13] MEDS: ACETAMINOPHEN 325 MG/TAB TABLET PO PRN (03:20)
[2016-08-13] MEDS: AMPICILLIN SULBACTAM IV SCH ×4 (03:48→21:31)
[2016-08-13] MEDS: NS IV SCH ×4 (03:48→21:31)
[2016-08-13] MEDS: NS 1,000 ML IV SCH ×2 (03:48→23:29)
[2016-08-13] MEDS: SODIUM CHLORIDE 0.9% 3 ML FLUSH FLUSH SCH ×2 (04:41→17:07)
--- NOTE | 2016-08-13 10:54 | GENMEDPROG ---
Chief Complaint: cellulitis, acute kidney injury, anemia of chronic disease, failure to thrive in adult, Notes Reviewed: Yes Events from last night noted and discussed with Clinical Staff Current Medication List: Reviewed Currently: Reports: SOB, Other (rash on legs). Denies: Cough, Wheezing, FONSECA, Ambulating DVT Prophylaxis: Yes - Physical Examination Vital Signs and I&O: Last Vital Signs Temp 97.9 F 08/13/16 06:00 Pulse 110 08/13/16 06:00 Resp 18 08/13/16 06:00 BP 150/72 08/13/16 06:00 Pulse Ox 99 08/12/16 13:44 Oxygen Pulse Oxygen Saturation 99 O2 Device Room Air Oxygen Flow Rate Fraction of Inspired Oxygen ( FIO2) Intake & Output 08/10/16 08/11/16 08/12/16 08/13/16 23:59 23:59 23:59 23:59 Intake Total 2887 2847 2845 721 Output Total 650 1075 400 450 Balance 2237 7962 5755 271 Patient's weight 82.781 kg 82.508 kg General: Alert, Cooperative, No acute distress, Weakness, Fatigue. negative: Oriented x3 (Very mild confusion), Well appearing (Chronically ill-appearing) HEENT: Normal, PERRLA, EOMI, Anicteric Sclera Neck: Non-tender, Full range of motion, Normal Trachea alignment, Normal inspection. negative: JVD Lymphatics: Normal. negative: Adenopathy Respiratory: Normal - CTA Cardiovascular: Regular rate and rhythm, No Gallops,Rubs/Murmurs GI: Normal bowel sounds, Non tender, No hepatospenomegaly, No masses Extremities/Musculoskeletal: Normal pulses, Edema (3 + chronic venous stasis of both lower extremities), Other (erythematous, warm scaling rash for the distal 2/3 of the lower leg). negative: Tenderness, Swelling Skin: Warm,Dry and Intact, No breakdown, No significant lesion, Rash, Erythema ( cellulitis with stasis dermatitis), Warmth. negative: No rashes Neurological: Normal speech, Strength at 5/5 X4 ext, Normal tone, Cranial nerves 3-12 NL Psych/Mental Status: Appropriate, Normal Affect, Cooperative, Drowsy - Assessment (1) Cellulitis of both lower extremities Acute L03.115 - CELLULITIS OF RIGHT LOWER LIMB; L03.116 - CELLULITIS OF LEFT LOWER LIMB Comment/Plan: Overall improved. Continue antibiotics. Leg elevation and physical therapy as tolerated. (2) Anemia Acute D64.9 - ANEMIA, UNSPECIFIED Qualifiers: Anemia type: other cause Iron deficiency anemia type: I Vitamin B12 deficiency anemia type: V Folate deficiency anemia type: F Bone marrow failure anemia type: B Hemolytic anemia type: H Other causes of anemia: chronic disease, neoplastic Qualified Code(s): D63.0 - Anemia in neoplastic disease Comment/Plan: Given IV Feraheme. Currently on hospice. (3) FTT (failure to thrive) in adult Acute R62.7 - ADULT FAILURE TO THRIVE Comment/Plan: Treat above issues. Physical therapy and occupational therapy evaluations to assess functional capacity. (4) Dementia associated with other underlying disease Acute F02.80 - DEMENTIA IN OTH DISEASES CLASSD ELSWHR W/O BEHAVRL DISTURB Qualifiers: Dementia behavioral disturbance: without behavioral disturbance Qualified Code(s): F02.80 - Dementia in other diseases classified elsewhere without behavioral disturbance Comment/Plan: Mild to moderate dementia. Mostly oriented at times. Continue supportive care. Currently on hospice and awaiting care home facility placement. (5) Accidental fall Acute W19.XXXA - UNSPECIFIED FALL, INITIAL ENCOUNTER Qualifiers: Encounter type: initial encounter Qualified Code(s): W19.XXXA - Unspecified fall, initial encounter Comment/Plan: Has laceration of forehead which has been repaired. Stable and healing well. (6) Acute renal failure Resolved N17.9 - ACUTE KIDNEY FAILURE, UNSPECIFIED Qualifiers: Acute renal failure type: with other specified pathological lesion Qualified Code(s): N17.8 - Other acute kidney failure Comment/Plan: Resolved. creatinine 1.1. Case Care Discussed with: Patient, Family, Nursing Staff, Resource Management Education/Counseling Given To: Patient Education/Counseling Given Regarding: Diagnosis, Treatment, Prognosis Critical Care: No Couseling Time (>50% in counseling/coordination): No Code: 60686 (12+)
[2016-08-13] MEDS: ENOXAPARIN 40 MG/0.4 ML PFS SQ SCH (17:08)
[2016-08-13] MEDS ORDERED: CLOTRIMAZOLE & BETAMETHASONE 45 GM TUBE TOP SCH (20:00)
[2016-08-13] MEDS: SIMETHICONE 80 MG TAB PO PRN (20:44)
[2016-08-13] MEDS: CLOTRIMAZOLE & BETAMETHASONE 45 GM TUBE TOP SCH (21:30)
[2016-08-13] MEDS: TEMAZEPAM 15 MG CAP PO PRN (21:31)
[2016-08-14] MEDS: NS 1,000 ML IV SCH (00:47)
[2016-08-14] MEDS: SIMETHICONE 80 MG TAB PO PRN ×2 (02:18→05:47)
[2016-08-14] MEDS: TRAMADOL HCL 50 MG TAB PO PRN ×3 (03:23→15:09)
[2016-08-14] MEDS: NS IV SCH ×3 (03:24→15:09)
[2016-08-14] MEDS: AMPICILLIN SULBACTAM IV SCH ×3 (03:24→15:09)
[2016-08-14] MEDS: SODIUM CHLORIDE 0.9% 3 ML FLUSH FLUSH SCH (05:42)
[2016-08-14] MEDS: CLOTRIMAZOLE & BETAMETHASONE 45 GM TUBE TOP SCH (07:22)
[2016-08-14] MEDS: ACETAMINOPHEN 325 MG/TAB TABLET PO PRN (07:22)
--- NOTE | 2016-08-14 10:09 | PCM.DCS92 ---
- Final/Secondary Discharge Diagnosis (1) Cellulitis of both lower extremities Acute L03.115 - CELLULITIS OF RIGHT LOWER LIMB; L03.116 - CELLULITIS OF LEFT LOWER LIMB Present on Admission: Yes Comment: Overall improved. Continue antibiotics. Leg elevation and physical therapy as tolerated. 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 Currently on hospice. (3) FTT (failure to thrive) in adult Acute R62.7 - ADULT FAILURE TO THRIVE Present on Admission: Yes Comment: Treat above issues. Physical therapy and occupational therapy evaluations to assess functional capacity. (4) Dementia associated with other underlying disease Acute F02.80 - DEMENTIA IN OTH DISEASES CLASSD ELSWHR W/O BEHAVRL DISTURB Present on Admission: Yes without behavioral disturbance F02.80 - Dementia in other diseases classified elsewhere without behavioral disturbance Comment: Mild to moderate dementia. Mostly oriented at times. Continue supportive care. Currently on hospice and awaiting care home facility placement. (5) Accidental fall Acute W19.XXXA - UNSPECIFIED FALL, INITIAL ENCOUNTER Present on Admission: Yes initial encounter W19.XXXA - Unspecified fall, initial encounter Comment: Has laceration of forehead which has been repaired. Stable and healing well. (6) Acute renal failure Resolved N17.9 - ACUTE KIDNEY FAILURE, UNSPECIFIED Present on Admission: Yes with other specified pathological lesion N17.8 - Other acute kidney failure Comment: Resolved. creatinine now 0.9. Discharge Disposition: Retirement Facility Discharge Condition: Improved Cognitive Discharge Status: Cognitive deficits prevent decision making for safety., Cognitive Deficits Impact judgement, impair ability to safely navigate Fuctional Discharge Status: Walker Assistance, Ambulatory Dysfunction Physician Follow up/Referrals: Lázaro Saravia MD [NonStaff] - F/U Facility Physician Home Medications / New Prescriptions: New Acetaminophen Tablet [TYLENOL Tablet] 650 mg PO Q6H PRN #100 tablet PRN Reason: Mild Pain Or Fever Above 100.4 Albuterol/Ipratropium Neb [Duoneb] 3 ml NEB Q2H PRN #100 nebu PRN Reason: Wheezing Amoxicillin/Potassium Clav [Augmentin 875-125 Tablet] 1 each PO TID #30 tablet Clotrimazole & Betamethasone [Lotrisone Cream] 45 gm TOP BID #1 tube Docusate-Senna Concentrate [Senokot S or Joceline Colace] 1 tab PO BID PRN #60 tablet PRN Reason: Constipation - First Option Fluconazole [Diflucan] 100 mg PO DAILY #10 tab Tramadol HCl [Ultram] 50 mg PO Q6H PRN #100 tablet PRN Reason: Moderate To Severe Pain Discharge Home Medication List Acetaminophen Tablet [TYLENOL Tablet] 650 mg PO Q6H PRN #100 tablet 08/14/16 [ Rx Last Taken Unknown] Albuterol/Ipratropium Neb [Duoneb] 3 ml NEB Q2H PRN #100 nebu 08/14/16 [Rx Last Taken Unknown] Amoxicillin/Potassium Clav [Augmentin 875-125 Tablet] 1 each PO TID #30 tablet 08/14/16 [Rx Last Taken Unknown] Clotrimazole & Betamethasone [Lotrisone Cream] 45 gm TOP BID #1 tube 08/14/16 [ Rx Last Taken Unknown] Docusate-Senna Concentrate [Senokot S or Joceline Colace] 1 tab PO BID PRN #60 tablet 08/14/16 [Rx Last Taken Unknown] Fluconazole [Diflucan] 100 mg PO DAILY #10 tab 08/14/16 [Rx Last Taken Unknown] Tramadol HCl [Ultram] 50 mg PO Q6H PRN #100 tablet 08/14/16 [Rx Last Taken Unknown] O2 Device: Room Air Diet at Discharge: Heart Healthy, Low Salt Activity: As Tolerated (ELEVATE LEGS OFTEN POSSIBLE), No Driving Call Office For: Worsening Symptoms - DC Summary Notes Hospital Course Note:: Discharge summary on patient named ROSENDO ARELLANO admitted to [facility] on 08/08/16 by Samira Driver MD. Date of discharge is []. - Physical Exam Vital Signs: Last Vital Signs Temp 98.1 F 08/14/16 06:00 Pulse 90 08/14/16 06:00 Resp 18 08/14/16 06:00 BP 128/66 08/14/16 06:00 Pulse Ox 94 08/14/16 06:00 Oxygen Pulse Oxygen Saturation 94 O2 Device Room Air Oxygen Flow Rate Fraction of Inspired Oxygen ( FIO2) Constitutional: No apparent distress, Cachectic, Confused Oriented to: Person - HEENT Head: Laceration (R synagogue 5 cm- closed with crystal), Swelling (hematoma), Tender Eye: Normal (PERRL: EOMI) Oropharynx: Normal, Membranes Dry, Other (dentures). negative: Drooling, Exudate, Red Tympanic Membrane: Dull ENT EAC: Normal Nose: No Symptoms Reported. negative: Bleeding, Congestion, Discharge, Deformity - Respiratory/Cardiovascular Respiratory: Normal - CTA - GI Auscultation: Normal Palpation: Normal (obese, soft, poor muscle tone, no palpable mass or fluid wave ). negative: Enlarged liver, Enlarged spleen Tenderness: Non tender Acevedo's Sign: Negative Rectal Exam: Normal, Heme negative stool. negative: Mass Stool: Brown - Musculoskeletal Back: Normal, No Palpable Step-off Extremities: Edema (4+ edema feet to knees bilaterally,with significant erythematous rash), Pedal Edema, Other (erythematous rash on distal legs, inflamed confluent areas) - Integumentary Lymphatics: Normal. negative: Adenopathy - Neurologic Memory Impaired: Short-term, Long-term Cerebellar: Unable to Test Mood Description: Flat Thought: Rambling Conversation Perception: Other (child-like, very simple, has difficulty processing 2 or 3 step directions.)
[2016-08-14 10:57] LABS: BLOOD UREA NITROGEN 17 MG/DL (7-17); CALCULATED OSMOLALITY 261 MOs/Kg (270-290); CHLORIDE 104 mEq/L (98-107); GLUCOSE 85 MG/DL (70-99); SODIUM LEVEL 135 mEq/L (137-146)
[2016-08-14 16:22] VITALS: BP 126/74; PULSE 76; TEMP 97.4
[2016-08-14] MEDS ORDERED: CHAPSTICK LIP BALM ONE (17:42)
[2016-08-14] MEDS ORDERED: HEPARIN 500 UNITS/5 ML (100 UNITS/ML) SYR FLUSH ONE (18:00)
== END 2016-08-14 17:45 | DRG 580 ==
LOC: ED 18:29 → MPS3 23:00
PROVIDERS: ADMIT Family Medicine; ATTEND Family Medicine
PROC: 0WQ0XZZ Repair Head, External Approach (ICD-10-PCS; principal; 2016-08-08)
DX: L03.115 Cellulitis of right lower limb (principal); N17.8 Other acute kidney failure; F02.80 Dementia in other diseases classified elsewhere, unspecified severity, without behavioral disturbance, psychotic disturbance, mood disturbance, and anxiety; D63.0 Anemia in neoplastic disease; R62.7 Adult failure to thrive; S01.01XA Laceration without foreign body of scalp, initial encounter; L03.116 Cellulitis of left lower limb; Z66 Do not resuscitate; M19.90 Unspecified osteoarthritis, unspecified site; Z79.82 Long term (current) use of aspirin; Z85.830 Personal history of malignant neoplasm of bone; W19.XXXA Unspecified fall, initial encounter; Y93.9 Activity, unspecified; Y92.009 Unspecified place in unspecified non-institutional (private) residence as the place of occurrence of the external cause
CPT/HCPCS: 12001; 36415; 51798; 70450; 71010; 80048; 80053; 81001; 82272; 82607; 82746; 83540; 83550; 83880; 84443; 84484; 85014; 85018; 85025; 85610; 85730; 87040; 93005; 94640; 96361; 96365; 96372; 97162; 99284; G0237; J0295; J1642; J1650; J3490; J7030; J7620; Q0138

== ENCOUNTER 2016-08-27 01:10 | Inpatient (IN) | payer MEDICARE, OTHER ==
[2016-08-27] MEDS ORDERED: PANTOPRAZOLE 40 MG VIAL IV STA (01:20)
[2016-08-27] MEDS ORDERED: ONDANSETRON HCL 4 MG/2 ML VIAL IV STA (01:20)
[2016-08-27 01:23] VITALS: BMI 34.5
--- NOTE | 2016-08-27 01:25 | EDPRACDOC ---
- General Information Stated Complaint: VOMITING BLOOD Time Seen by Provider: 08/27/16 01:17 Information Source: Patient Mode of Arrival: Ambulance Home Medications: Home Medications Acetaminophen Tablet [TYLENOL Tablet] 650 mg PO Q6H PRN #100 tablet 08/14/16 Amoxicillin/Potassium Clav [Augmentin 875-125 Tablet] 1 each PO TID #30 tablet 08/14/16 Tramadol HCl [Ultram] 50 mg PO Q6H PRN #100 tablet 08/14/16 Albuterol/Ipratropium Neb [Duoneb] 3 ml NEB . Q2 PRN 08/27/16 Calcium Carbonate + Vitamin D [Oscal with Vitamin D] 500 mg PO BID 08/27/16 Ciprofloxacin HCl [Cipro] 250 mg PO BID 08/27/16 Furosemide [Lasix] 60 mg PO DAILY 08/27/16 Multivitamin [Multiple Vitamins] 1 each PO DAILY 08/27/16 Sennosides/Docusate Sodium [Senokot-S Tablet] 1 each PO BID PRN 08/27/16 Allergies/Adverse Reactions: Allergies Allergy/AdvReac Type Severity Reaction Status Date / Time No Known Allergies Allergy Verified 08/08/16 18:49 - History of Present Illness HPI: PT PRESENTS WITH REPORT OF VOMITING AND POSSIBLE VOMITING OF BLOOD. PT IS A POOR HISTORIAN AND DOES NOT KNOW ABOUT BLEEDING BUT REPORTS THAT SHE BEGAN VOMITING LESS THAN 2 HOURS AGO. ED Past Medical History - History Reviewed Yes Nurses notes reviewed and agree except as marked - Patient Medical History Neurological History: Reports: Dementia Musculoskeletal History: Reports: Osteoarthritis (s/p L hip fracture- probably pathologic from cancer) Psychological History: Denies: Depression Systemic History: Reports: Cancer (unknown primary, mets to spine, hip) Surgical History: Reports: Hysterectomy, Tonsillectomy/Adnoidectomy, Other (L hip ORIF, portacath) - Social Medical History Smoking Status: Never smoker Lives In: [facility] Facility EDM Review of Systems - Review of Systems ROS Unobtainable: Yes Hx Limited due to age/level of understanding of patient Gastrointestinal: Vomiting. negative: Pain - Physical Exam Constitutional: Alert Oriented to: Person, Place Last recorded Vital Signs: Oxygen Pulse Oxygen Saturation O2 Device Oxygen Flow Rate Fraction of Inspired Oxygen ( FIO2) - HEENT Head: negative: Deformity, Laceration Eye Exam: negative: Conjunctival Injection, Pale Conjunctiva Oropharynx: Other (NO DRIED BLOOD SEEN IN OROPHARYNX.). negative: Drooling, Exudate, Membranes Dry, Red, Tonsillar Hypertrophy, White Plaques Nose: negative: Bleeding, Congestion, Discharge Neck: negative: Limited ROM - Respiratory/Cardiovascular Respiratory: Normal - CTA. negative: Accessory Muscle Use, Diminished, Tachypnea Cardiovascular: negative: Bradycardia, Tachycardia, Irregular - GI Auscultation: Normal Palpation: Normal Tenderness: Non tender Rectal Exam: Heme negative stool - Musculoskeletal Extremities: Radial Pulse (PALPABLE) - Integumentary Skin: Warm, Dry, Rash (BILATERAL LOWER LEG ERYTHEMA WITH SOME SKIN SLOUGHING.) - Neurologic Memory Impaired: Short-term, Long-term Motor Function: Normal Mood Description: Anxious Thought: Coherent - Re-evaluation Re-evaluation 1 Re-evaluation Time: 03:51 PT IS HEMOCCULT NEGATIVE. - Results 08/27/16 01:50 08/27/16 01:50 - Departure Yes I personally saw and evaluated the patient. Disposition: Admit IP To This Hospital Condition: Stable Final Diagnosis: Renal insufficiency GI bleed Qualifiers: GI bleed type/associated pathology: unspecified gastrointestinal hemorrhage type Qualified Code(s): K92.2 - Gastrointestinal hemorrhage, unspecified Anemia Qualifiers: Anemia type: other cause Other causes of anemia: chronic disease, neoplastic Qualified Code(s): D63.0 - Anemia in neoplastic disease
[2016-08-27 02:04] LABS: MPV 7.3 fL (7.4-10.4)
[2016-08-27 02:26] LABS: PARTIAL THROMB. TIME 35.7 SEC (22-35); PT-INR 1.4
[2016-08-27 02:30] LABS: BLOOD UREA NITROGEN 34 MG/DL (7-17); CALC CORRECTED 9.7 MG/DL (8.4-10.2); CALCIUM 8.2 MG/DL (8.4-10.2); CALCULATED OSMOLALITY 260 MOs/Kg (270-290); CHLORIDE 98 mEq/L (98-107); GLUCOSE 121 mg/dL (70-99); SODIUM LEVEL 130 mEq/L (137-146); TOTAL PROTEIN 5.5 G/DL (6.3-8.2)
[2016-08-27 02:42] LABS: SEG NEUTROPHIL 90 % (45-76)
[2016-08-27 02:43] LABS: TOTAL CELL COUNT 102
[2016-08-27] MEDS ORDERED: NS 1,000 ML IV ONE (02:48)
--- NOTE | 2016-08-27 03:32 | HISTPHYS ---
- Chief Complaint sent from [facility] due to vomiting blood - History of Present Illness PRIMARY CARE PROVIDER: Dr. Cheung while patient is in [facility]. HPI: The patient is a 70 yo woman who was sent by the senior living facility because she was vomiting blood. The patient does not remember any of that, and has no complaints other than feeling tired. Initially she denied any abdominal pain, but later on admitted that she is just starting to get a little bit of abdominal pain. Onset: a few minutes ago for abdominal pain. Vomiting blood (per facility note) started a few hours ago. Duration: intermittent. Location: epigastric. Radiation: none. Character: 09/28. Dull ache. Alleviated by: Nothing. Exacerbated by: Nothing. Associated Symptoms: Patient denies any other symptoms except fatigue. Facility reports patient had nausea and vomiting, and the vomit contained blood. No known diarrhea, constipation, or bloody stool. Treatments: none at facility except usual medications. She was recently admitted to the hospital 08/08/16 to 08/14/16 for cellulitis of her leg and received IV antibiotics while she was here. Emergency department physician performed a rectal exam and reported that the patient was Hemoccult negative. History and Discharge from 08/08/16 to 08/14/16 hospitalization: Elizabeth Lopez is a 70 year old woman who appears much older. She lives at home alone, but is severely demented and has been seen to be incapable of caring for herself. A neighbor checked on her this evening and found her lying on the floor with a cut on her head. Her house is extremely cluttered, the patient does not clean it and apparently either hoards things or has lost the ability to sort and prioritize use of her possessions. A report from the physical therapist who made a home health visit in March of last year provides some additional history to corroborate the neighbor's report. Adult protective services was informed at that time. The patient is unable to give any useful history. she did not remember falling, can not tell where she lives , does not know the date, does not know any of her past medical history. We have a written report stating that she had a left hip fracture last fall and bone mets to her spine at that time, although the primary is not clear in the report. The patient has a port-a-cath. She did not remember that she had a port-a-cath, does not know why she has it, can not recall ever having had surgery. She does not know what type of cancer she had. She does not know the names of her doctors. She did hit her head and possibly lost consciousness for an unknown period of time. The neighbor is not certain if she was alert or unconscious when she first found her. The laceration to her right forehead has been repaired in the ED. No fracture or subdural hematoma or intracranial hemorrhage is evident on CT scan. Discharge summary on patient named ELIZABETH LOPEZ admitted to [facility] on 08/08/16 by Samira Driver MD. Date of discharge is []. Elizabeth Lopze is a severely demented woman that fell at home and was found lying on the floor by a neighbor who checked on her. She was brought to the ED for care and her head laceration was sutured. She was noted to be in acute renal failure, and was admitted for hydration and further evaluation. After several days of IV fluids, her renal function improved. She could not remember falling , and also did not remember her past medical history. Apparently she has been treated in the past possibly for colon cancer (she has a large healed abdominal scar and a portacath). She was treated for her bilateral leg cellulitis with IV antibiotics and elevation of her legs. At this point she is improving and we are recommending senior living placement for initial rehabilitation, then extended care placement. The patient is not capable of caring for herself at home due to her significant cognitive deficits. - Medical History Musculoskeletal History: Reports: Osteoarthritis (s/p L hip fracture- probably pathologic from cancer. MASSIVE LEG EDEMA B/L.) Systemic History: Reports: Cancer (unknown primary, mets to spine, hip) Neurological History: Reports: Dementia Psychological History: Denies: Depression - Surgical History Reports: Hysterectomy, Tonsillectomy/Adnoidectomy, Other (L hip ORIF, portacath) - Medictions/Allergies Allergies No Known Allergies Allergy (Verified 08/08/16 18:49) Current Medication List: Reviewed Home Medications Acetaminophen Tablet [TYLENOL Tablet] 650 mg PO Q6H PRN #100 tablet 08/14/16 Amoxicillin/Potassium Clav [Augmentin 875-125 Tablet] 1 each PO TID #30 tablet 08/14/16 Tramadol HCl [Ultram] 50 mg PO Q6H PRN #100 tablet 08/14/16 Albuterol/Ipratropium Neb [Duoneb] 3 ml NEB . Q2 PRN 08/27/16 Calcium Carbonate + Vitamin D [Oscal with Vitamin D] 500 mg PO BID 08/27/16 Ciprofloxacin HCl [Cipro] 250 mg PO BID 08/27/16 Furosemide [Lasix] 60 mg PO DAILY 08/27/16 Multivitamin [Multiple Vitamins] 1 each PO DAILY 08/27/16 Sennosides/Docusate Sodium [Senokot-S Tablet] 1 each PO BID PRN 08/27/16 - Family History Reports: Other (Patient does not remember medical history of any family members. ) - Social History Lives: [facility] Smoking Status: Never smoker Social History: Denies: Alcohol Use, Substance Use Disorder - Review of Systems GENERAL: No Fever, chills, or diaphoresis. Positive for fatigue/malaise. HEENT: No ear pain or discharge. No nasal discharge or bleeding. No throat pain or swelling. No eye pain or eye redness. RESPIRATORY: No cough, wheezing, or shortness of breath. CARDIOVASCULAR: No chest pain or palpitations. GI: Abdominal pain, nausea, vomiting. No diarrhea, constipation, or bloody stool. NEUROLOGICAL: No headache or focal weakness. INTEGUMENT: Other than chronic lower extremity rash bilaterally and healing cellulitis on right leg, no new rashes, itching, or lesions. LYMPHATIC SYSTEM: Chronic lower extremity edema. No lymph node swelling or pain. MUSCULOSKELETAL: Chronic lower extremity edema and pain but no joint swelling. GENITOURINARY: No dysuria or hematuria. ENDOCRINE: No polyuria or polydipsia. HEME: No chronic anemia, bleeding (patient denies bleeding), or easy bruising. - Physical Exam Vital Signs: Initial Vitals Temperature 98.3 F 08/27/16 01:18 Pulse Rate 108 08/27/16 01:18 Respiratory Rate 18 08/27/16 01:18 Blood Pressure 129/71 08/27/16 01:18 Pulse Oxygen Saturation 94 08/27/16 01:18 Vital Signs - 24 hr 08/27/16 01:18 Temperature 98.3 F Pulse Rate 108 Respiratory 18 Rate Blood Pressure 129/71 Pulse Oxygen 94 Saturation Weight: 91.2 kg Height: 5 feet 4 inches BMI: 34.6 - Other Exam Other Exam Findings: GENERAL: Ill-appearing, well nourished, in acute distress. HEENT: Normocephalic, atraumatic, with small head/skull; pupils equal and round. Nares patent, without discharge or bleeding. No oropharyngeal lesions or erythema. Mucous membranes are dry. NECK: is supple, no masses, trachea midline. RESPIRATORY: Clear to auscultation bilaterally. Chest wall movements are symmetric. No use of accessory muscles to breathe. No wheezing, rales, rhonchi. CARDIOVASCULAR: Normal S1, S2. No murmurs, rubs, or gallops. PMI non-displaced. Carotids: no carotid bruits. No bradycardia or tachycardia. DP pulses 1-2+ bilaterally. GI: soft, nontender, non-distended, normal active bowel sounds. No hepatosplenomegaly. INTEGUMENT: Lower extremity erythema with some exfoliation/peeling of skin, appears chronic. Right leg with more area of erythema. Generally clean, dry, and intact. MUSCULOSKELETAL: Moving all extremities. No cyanosis. No clubbing. Edema: 4+ lower extremity edema bilaterally. Massive edema of legs bilaterally. NEUROLOGICAL: Cranial nerves 2-12 grossly intact. Motor 4/5 throughout upper extremities, 2-/5 in lower extremities. Reflexes: 2+ bilaterally. Babinski: toes nonreactive bilaterally. Intact Finger to nose. Sensory grossly intact to light touch. Intact rapid alternating movements bilaterally. No pronator drift. PSYCHIATRIC: Oriented to person. Normal and appropriate affect. LYMPHATIC: No cervical lymphadenopathy. No supraclavicular lymphadenopathy. - Lab Results Laboratory Results - last 24 hr 08/27/16 08/27/16 08/27/16 01:50 01:50 01:50 WBC 21.7 H RBC 2.66 L Hgb 7.8 L Hct 23.9 L MCV 90 MCH 29.3 MCHC 32.6 L RDW 17.3 H Plt Count 375 MPV 7.3 L Neut % (Auto) Cancelled Lymph % (Auto) Cancelled Lewis % (Auto) Cancelled Eos % (Auto) Cancelled Baso % (Auto) Cancelled Absolute Neuts (auto) Cancelled Absolute Lymphs (auto) Cancelled Seg Neuts % (Manual) 90 H Band Neutrophils % 2 Lymphocytes % (Manual) 3 L Monocytes % (Manual) 4 Metamyelocytes % 1 H Absolute Neutrophils 19.96 H Absolute Lymphocytes 0.65 Nucl RBC Rel Cnt (Man) 2 Platelet Estimate Norm RBC Morphology 2+ poik PT 14.0 H INR 1.4 APTT 35.7 H Sodium 130 L Potassium 4.1 Chloride 98 Carbon Dioxide 24 Anion Gap 12 BUN 34 H Creatinine 1.60 H Estimated GFR (MDRD) 32 L Glucose 121 H Calculated Osmolality 260 L Calcium 8.2 L Corrected Calcium 9.7 Total Bilirubin 0.5 AST 15 ALT 31 Alkaline Phosphatase 149 Troponin I 0.01 Total Protein 5.5 L Albumin 2.5 L - Diagnostic Findings EK bpm. Sinus tachycardia. Low voltage QRS. Cannot rule out inferior and anterior infarct, age undetermined. Flat T waves in 1, 2, 3, V3, V5, and V6. Minimal ST depression in V4. Reviewed EKG personally. X-rays: pending. - Assessment (1) Upper GI bleed K92.2 - GASTROINTESTINAL HEMORRHAGE, UNSPECIFIED Acute Present on Admission: Yes Patient is symptomatic at this time. Report of hemoptysis (but patient does not remember). Hemoglobin level is low. Plan: Admit to hospital. Start IV pantoprazole q12 hours. Monitor H/H. May need EGD. Consult GI. If Hemoglobin is less than 7, then: Transfuse 2 units PRBC's. Pretreat with Tylenol 650 mg PO x 1 and Benadryl 25 mg IV x 1. Keep 1 unit on hand at all times. (2) Anemia associated with acute blood loss D62 - ACUTE POSTHEMORRHAGIC ANEMIA Acute Present on Admission: Yes Has chronic anemia, which may be related to her cancer (unknown primary), but now worsened, likely due to vomiting blood. Plan: Start IV pantoprazole q12 hours. Monitor H/H. Consult GI. If Hemoglobin is less than 7, then: Transfuse 2 units PRBC's. Pretreat with Tylenol 650 mg PO x 1 and Benadryl 25 mg IV x 1. Keep 1 unit on hand at all times. (3) Leukocytosis D72.829 - ELEVATED WHITE BLOOD CELL COUNT, UNSPECIFIED Acute Present on Admission: Yes May be related to acute anemia or could represent infection. No evidence of acute infection on admission. Plan: Cultures ordered. Stool and c diff ordered - in case patient is found to have diarrhea. Monitor for signs of infection. (4) Renal insufficiency N28.9 - DISORDER OF KIDNEY AND URETER, UNSPECIFIED Acute Present on Admission: Yes Mild dehydration and renal insufficiency. Plan: Gentle IV rehydration, but monitor -- patient has severe lower extremity edema that is chronic. (5) Bilateral lower extremity edema R60.0 - LOCALIZED EDEMA Chronic Present on Admission: Yes HISTORY 07/2016: This is moderate to severe appears more chronic. Likely component of dependent stasis edema and dermatitis. UPDATE: Continues to have severe edema. Monitor. Elevate legs. (6) FTT (failure to thrive) in adult R62.7 - ADULT FAILURE TO THRIVE Chronic Present on Admission: Yes Found to be unable to care for herself due to severe dementia and other issues. Plan: Return to senior living facility when treatment complete. (7) Dementia associated with other underlying disease F02.80 - DEMENTIA IN H DISEASES CLASSD ELSWHR W/O BEHAVRL DISTURB Chronic Present on Admission: Yes Qualifiers: Dementia behavioral disturbance: without behavioral disturbance Qualified Code(s): F02.80 - Dementia in other diseases classified elsewhere without behavioral disturbance HISTORY: Mild to moderate dementia. Mostly oriented at times. Continue supportive care. Currently on hospice and awaiting [facility] facility placement. UPDATE: Is oriented to self. Does not remember why she is here. Unable to care for self. Return to facility once treatment complete. - Plan UPDATE: Chest x-ray, viewed personally: EXAM: PORTABLE CHEST 1 VIEW COMPARISON: Chest radiograph from 08/08/2016 FINDINGS: A right-sided chest port is noted ending about the mid SVC. Minimal left basilar atelectasis is noted. No pleural effusion or pneumothorax is seen. The cardiomediastinal silhouette is normal in size. No acute osseous abnormalities are identified. IMPRESSION: Minimal left basilar atelectasis noted. Lungs otherwise grossly clear. Abdominal films, viewed personally: EXAM: ABDOMEN - 2 VIEW COMPARISON: CT of the abdomen and pelvis performed 02/27/2016 FINDINGS: The visualized bowel gas pattern is unremarkable. Scattered air-filled loops of small and large bowel are seen, without definite evidence for bowel obstruction. No free intra-abdominal air is identified, though evaluation for free air is limited on a single supine view. Degenerative change is noted along the lumbar spine. An abdominal wall mesh is noted. A left femoral prosthesis is grossly unremarkable in appearance. The visualized lung bases are essentially clear. IMPRESSION: Unremarkable bowel gas pattern; no free intra-abdominal air seen. Case Care Discussed with: Patient, Nursing Staff
--- NOTE | 2016-08-27 04:01 | DIRPT ---
CLINICAL DATA: Acute onset of hematemesis and leukocytosis. Initial encounter. EXAM: PORTABLE CHEST 1 VIEW COMPARISON: Chest radiograph from 08/08/2016 FINDINGS: A right-sided chest port is noted ending about the mid SVC. Minimal left basilar atelectasis is noted. No pleural effusion or pneumothorax is seen. The cardiomediastinal silhouette is normal in size. No acute osseous abnormalities are identified. IMPRESSION: Minimal left basilar atelectasis noted. Lungs otherwise grossly clear. Electronically Signed By: Kalyan Hernandez M.D. On: 08/27/2016 03:59
--- NOTE | 2016-08-27 04:03 | DIRPT ---
CLINICAL DATA: Acute onset of hematemesis and leukocytosis. Abdominal pain. Initial encounter. EXAM: ABDOMEN - 2 VIEW COMPARISON: CT of the abdomen and pelvis performed 02/27/2016 FINDINGS: The visualized bowel gas pattern is unremarkable. Scattered air-filled loops of small and large bowel are seen, without definite evidence for bowel obstruction. No free intra-abdominal air is identified, though evaluation for free air is limited on a single supine view. Degenerative change is noted along the lumbar spine. An abdominal wall mesh is noted. A left femoral prosthesis is grossly unremarkable in appearance. The visualized lung bases are essentially clear. IMPRESSION: Unremarkable bowel gas pattern; no free intra-abdominal air seen. Electronically Signed By: Kalyan Hernandez M.D. On: 08/27/2016 04:01
[2016-08-27] MEDS ORDERED: TEMAZEPAM 15 MG CAP PO PRN (04:33)
[2016-08-27] MEDS ORDERED: BENZONATATE 100 MG PERLES PO PRN (04:33)
[2016-08-27] MEDS ORDERED: GUAIFEN 100 MG-DEXTROMETH 10 MG PER 5 ML PO PRN (04:33)
[2016-08-27] MEDS ORDERED: ACETAMINOPHEN 325 MG SUPP PR PRN (04:33)
[2016-08-27] MEDS ORDERED: Docusate Sodium 100 MG CAP PO PRN (04:33)
[2016-08-27] MEDS ORDERED: ONDANSETRON HCL 4 MG/2 ML VIAL IV PRN (04:33)
[2016-08-27] MEDS ORDERED: ALBUTEROL 0.083% 3 ML NEB NEB PRN (04:33)
[2016-08-27] MEDS ORDERED: SENNA CONCENTRATE TAB PO PRN (04:33)
[2016-08-27] MEDS ORDERED: PROMETHAZINE 25 MG/ML VIAL IV PRN (04:33)
[2016-08-27] MEDS ORDERED: BISACODYL 5 MG TAB PO PRN (04:33)
[2016-08-27] MEDS ORDERED: SIMETHICONE 80 MG TAB PO PRN (04:33)
[2016-08-27] MEDS ORDERED: Vaccine Screening Complete SCH (05:00)
[2016-08-27] MEDS ORDERED: CHAPSTICK LIP BALM ONE (05:30)
[2016-08-27] MEDS: NS 1,000 ML IV SCH (05:33)
[2016-08-27] MEDS: PANTOPRAZOLE 40 MG VIAL IV SCH ×2 (05:34→17:15)
--- NOTE | 2016-08-27 14:16 | PCM.CONSGI ---
Consult Date: 08/27/16 Consult Requesting Physician: Pepe Lima Consult Reason: Other (Hematemesis hematemesis), Anemia - History of Present Illness Ms Lopez is a 70-year-old female with metastatic ovarian cancer [facility] patient was referred to the emergency room after ever reported episode of hematemesis. Ms Lopez 70-year-old female chronic a [facility] patient who has a history of ovarian cancer metastatic to the bone and abdomen. She is has post radiation therapy she does report some lower abdominal discomfort. She is not reporting heartburn indigestion. Her history is questionable. She does have a appointed guardian. Because of her reported hematemesis I discussed with her upper endoscopy she was agreeable to proceed and for blood transfusion. Ms Lopez does report being tired. She says she is ambulatory with assistance. She reports her appetite is good but she eats very little. She does not remember having any ulcer disease. She does not think she has ever had an upper endoscopy. She is denying any upper abdominal discomfort. She does report some lower abdominal discomfort. She does not remember having ever had a colonoscopy. She does not think she has a problem with constipation loose stools. She did have Hemoccult-negative stools in the emergency room. There is no report of gross blood in the stool or melena per the review of the records. She does have by her records ovarian cancer metastatic. She has radiation tattoos. Per the records she is followed by Dr. Garcia. Ms Lopez does not do remember her last visit with her. She did not remember having had ovarian cancer. - Past Medical History Musculoskeletal History: Reports: Osteoarthritis (s/p L hip fracture- probably pathologic from cancer. MASSIVE LEG EDEMA B/L.) Systemic History: Reports: Cancer (Ovarian cancer mets to spine, hip and abdomen ) Neurological History: Reports: Dementia Psychological History: Denies: Alcoholism, Depression, Substance Use Disorder Additional Past Medical History: The patient is unable to give accurate history of cardiac respiratory or GI history most obtained from the chart - Surgical History Past Surgical History: Reports: Hysterectomy, T&A - Family History Family History: Reports: Other (Unknown) - Allergies Allergies No Known Allergies Allergy (Verified 08/27/16 09:16) - Medications Home Medications Acetaminophen Tablet [TYLENOL Tablet] 650 mg PO Q6H PRN #100 tablet 08/14/16 Tramadol HCl [Ultram] 50 mg PO Q6H PRN #100 tablet 08/14/16 Acetaminophen [Tylenol] 650 mg PO QID 08/27/16 Albuterol/Ipratropium Neb [Duoneb] 3 ml NEB Q2H PRN 08/27/16 Calcium Carbonate/Vitamin D3 [Oyster Shell Calcium-Vit D Tab] 1 each PO BID 01/05 Furosemide [Lasix] 60 mg PO 0800 08/27/16 Multivitamin [Multiple Vitamins] 1 each PO DAILY 08/27/16 Ondansetron HCl [Zofran] 4 mg PO Q4H PRN 08/27/16 Sennosides/Docusate Sodium [Senokot-S Tablet] 1 each PO BID PRN 08/27/16 - Social History Lives: in [facility] Smoking Status: Never smoker Social History: Denies: Alcohol Use, Substance Use Disorder - Review of Systems ROS Unobtainable: Yes Review of systems cannot be obtained due to the patient's medical condition - Exam Vital Signs: Temperature: 98.0 F (08/27/16 11:44) HR: 114 (08/27/16 14:00) RR: 18 (08/27/16 11:44) BP: 113/81 (08/27/16 11:44) Pulse Ox: 98 (08/27/16 11:44) General: Alert, Oriented x3, Cooperative, No acute distress HEENT: negative: Icteric Sclera Respiratory: Normal - CTA. negative: Accessory Muscle Use Cardiovascular: Regular rate Gastrointestinal: Soft, Bowel Sounds, Other (Tattoos dots across the mid abdomen likely from prior radiation Rectal exam per the ER physician Hemoccult- negative). negative: Distended, Tender Extremities: Edema (Massive) Skin: Warm,Dry and Intact Neurological: Normal speech Psych/Mental Status: Confused - Labs Result Diagrams: 08/27/16 01:50 08/27/16 01:50 Laboratory Tests 08/27/16 08/27/16 01:50 01:50 PT 14.0 H INR 1.4 Total Bilirubin 0.5 AST 15 ALT 31 Alkaline Phosphatase 149 Total Protein 5.5 L Albumin 2.5 L Ms - Assessment and Plan (1) Anemia Acute D64.9 - ANEMIA, UNSPECIFIED other cause chronic disease, neoplastic D63.0 - Anemia in neoplastic disease (2) Leukocytosis Acute D72.829 - ELEVATED WHITE BLOOD CELL COUNT, UNSPECIFIED (3) Renal insufficiency Acute N28.9 - DISORDER OF KIDNEY AND URETER, UNSPECIFIED (4) Bilateral lower extremity edema Chronic R60.0 - LOCALIZED EDEMA (5) Dementia associated with other underlying disease Chronic F02.80 - DEMENTIA IN OTH DISEASES CLASSD ELSWHR W/O BEHAVRL DISTURB without behavioral disturbance F02.80 - Dementia in other diseases classified elsewhere without behavioral disturbance (6) Coagulopathy Acute D68.9 - COAGULATION DEFECT, UNSPECIFIED Recommendations: 1. Continue care for multiple medical problems 2. Ppi therapy 3. Monitor hemoglobin and for active bleeding 4. Arrange for upper endoscopy in a.m. Discussed with the [id number] and Dr. Cheung and Dr. Lima. Her last 2 CTs performed in [place] reviewed.
[2016-08-27 14:50] LABS: % SATURATION 23.4 % (15-50)
[2016-08-27] MEDS ORDERED: PHYTONADIONE 10 MG/ML SQ ONE (15:00)
[2016-08-27 15:46] LABS: FOLATES 3.56 ng/mL (>2.76)
[2016-08-27] MEDS: ACETAMINOPHEN 325 MG/TAB TABLET PO PRN (18:02)
[2016-08-27] MEDS: OXYCODONE HCL 5 MG TABLET PO PRN (22:23)
[2016-08-28] MEDS: NS 1,000 ML IV SCH ×3 (01:00→16:17)
[2016-08-28] MEDS: PANTOPRAZOLE 40 MG VIAL IV SCH (04:20)
[2016-08-28 05:51] LABS: BLOOD UREA NITROGEN 41 MG/DL (7-17); CALC CORRECTED 9.7 MG/DL (8.4-10.2); CALCIUM 8.3 MG/DL (8.4-10.2); CALCULATED OSMOLALITY 264 MOs/Kg (270-290); CHLORIDE 99 mEq/L (98-107); GLUCOSE 85 mg/dL (70-99); SODIUM LEVEL 132 mEq/L (137-146); TOTAL PROTEIN 5.3 G/DL (6.3-8.2)
[2016-08-28] MEDS ORDERED: MEPERIDINE 25 MG/ML TUBEX ONE (06:45)
[2016-08-28] MEDS ORDERED: MIDAZOLAM 5 MG/5 ML VIAL ONE (06:45)
--- NOTE | 2016-08-28 08:00 | HIMOPRPT ---
DATE OF PROCEDURE: 08/28/16 PROCEDURE: Esophagogastroduodenoscopy with biopsy. INDICATIONS: Hematemesis anemia. INSTRUMENTS: Olympus video upper endoscope. MEDICATIONS: Versed 2 mg IV and Demerol 25 mg IV. PHYSICAL EXAMINATION: GENERAL: The patient was in no distress. VITAL SIGNS: Stable. CHEST: Clear CARDIAC: Regular rate and rhythm. ABDOMEN: [Nondistended, Lower abdominal tenderness ]. NEUROLOGIC: The patient was alert DESCRIPTION OF PROCEDURE: Ms Lopez was placed in a left lateral position and IV sedation was given in small incremental doses for the patient's comfort for moderate sedation. The throat was anesthetized with Cetacaine spray.The endoscope was advanced without difficulty into the duodenum. ESOPHAGUS: Esophagus had gastroesophageal junction located at 35 cm junction was well distended. The distal esophagus was significant for multiple erosions. Possible pillinduced ulcerations. There is no bleeding present.. STOMACH: [Stomach had scattered erythema and a few erosions in the body and antrum. There was a linear 0.3 x 0.5 ulcer in the antrum which was bland base. There is no blood present. The mucosal surface was slightly friable with movement of the endoscope causing some submucosal hemorrhage. A hiatal hernia was present. DUODENUM: The duodenum was normal. Antral and fundal biopsies were obtained for H. pylori testing. The patient tolerated the procedure well. IMPRESSION: 1. Erosive esophagitis LA classification C , possible pill induced 2. Small antral ulcer 3. Erosive gastritis 4. Hiatal hernia RECOMMENDATIONS: 1. Ppi therapy 2. Monitor hemoglobin and for active bleeding 3. [place] diet 4. Take medications and meals sitting at 90 5. Take medication with plenty of liquids 6. Awaiting H pylori testing
[2016-08-28] MEDS: OXYCODONE HCL 5 MG TABLET PO PRN (09:17)
--- NOTE | 2016-08-28 14:55 | GENMEDPROG ---
Subjective Note: Patient in bed responsive follows commands poorly interactive. Appearing depressed and chronically ill. Denies and difficulties breathing cough phlegm production reports no PND orthopnea. Patient reports indigestion on occasion crampy abdominal pain Notes Reviewed: Yes: Events from last night noted and discussed with Clinical Staff Current Medication List: Reviewed Currently: Reports: Cough, FONSECA, Sputum, Reflux Sx, Abdominal Pain DVT Prophylaxis: Yes - Physical Examination Vital Signs and I&O: Last Vital Signs Temp 97.4 F L 08/28/16 12:00 Pulse 100 08/28/16 14:00 Resp 18 08/28/16 12:00 BP 123/71 08/28/16 12:00 Pulse Ox 94 08/28/16 12:00 Oxygen Pulse Oxygen Saturation 94 O2 Device Room Air Oxygen Flow Rate 2 Fraction of Inspired Oxygen ( FIO2) Intake & Output 08/25/16 08/26/16 08/27/16 08/28/16 23:59 23:59 23:59 23:59 Intake Total 1298 846 Output Total 0 Balance 1298 846 Patient's weight 92.533 kg 93.582 kg General: Alert, Oriented x3, Cooperative, No acute distress HEENT: Normal, PERRLA, EOMI, Anicteric Sclera Neck: Non-tender, Limited range of motion Lymphatics: Normal Respiratory: Normal - CTA, Diminished, Rhonchi. negative: Accessory Muscle Use Cardiovascular: Regular rate, Normal S1, Normal S2, Murmurs GI: Normal bowel sounds, Soft, Non tender, No hepatospenomegaly, No masses Extremities/Musculoskeletal: Edema (Massive), DJD Skin: Warm,Dry and Intact, No rashes, No breakdown, No significant lesion Neurological: Normal speech, Cranial nerves 3-12 NL Psych/Mental Status: Confused, Disoriented - Assessment (1) GI bleed Acute K92.2 - GASTROINTESTINAL HEMORRHAGE, UNSPECIFIED Qualifiers: GI bleed type/associated pathology: unspecified gastrointestinal hemorrhage type Qualified Code(s): K92.2 - Gastrointestinal hemorrhage, unspecified Comment/Plan: Continue PPI. Status post EGD. Advance diet as tolerated (2) Anemia associated with acute blood loss Acute D62 - ACUTE POSTHEMORRHAGIC ANEMIA Comment/Plan: Received 2 units of pooled red blood cells ,overall hemoglobin improved and stable (3) Acute renal failure Resolved N17.9 - ACUTE KIDNEY FAILURE, UNSPECIFIED Qualifiers: Acute renal failure type: with other specified pathological lesion Qualified Code(s): N17.8 - Other acute kidney failure Comment/Plan: Continue gentle IV hydration monitor BMP avoid any nephrotoxins (4) Dementia associated with other underlying disease Chronic F02.80 - DEMENTIA IN OTH DISEASES CLASSD ELSWHR W/O BEHAVRL DISTURB Qualifiers: Dementia behavioral disturbance: without behavioral disturbance Qualified Code(s): F02.80 - Dementia in other diseases classified elsewhere without behavioral disturbance Comment/Plan: Continue supportive care. (5) Bilateral lower extremity edema Chronic R60.0 - LOCALIZED EDEMA Comment/Plan: Continue leg elevation (6) Ovarian cancer Acute C56.9 - MALIGNANT NEOPLASM OF UNSPECIFIED OVARY Qualifiers: Laterality: unspecified laterality Qualified Code(s): C56.9 - Malignant neoplasm of unspecified ovary Comment/Plan: With meds. Follow by obgyn nurse-Onc - Plan Last Vital Signs Temp 97.4 F L 08/28/16 12:00 Pulse 100 08/28/16 14:00 Resp 18 08/28/16 12:00 BP 123/71 08/28/16 12:00 Pulse Ox 94 08/28/16 12:00 08/28/16 05:25 08/28/16 05:25 Abnormal Lab Results 08/27/16 08/27/16 08/28/16 01:50 14:30 05:25 WBC RBC Hgb Hct MCHC RDW MPV Sodium 132 L BUN 41 H Creatinine 1.90 H Estimated GFR (MDRD) 26 L Calculated Osmolality 264 L Calcium 8.3 L Iron 33.0 L TIBC 141 L Ferritin 1160.0 H Total Protein 5.3 L Albumin 2.6 L Vitamin B12 > 1000 H Crossmatch See Detail 08/28/16 05:25 WBC 21.9 H RBC 3.54 L Hgb 10.2 L D Hct 31.5 L MCHC 32.5 L RDW 16.1 H MPV 7.0 L Sodium BUN Creatinine Estimated GFR (MDRD) Calculated Osmolality Calcium Iron TIBC Ferritin Total Protein Albumin Vitamin B12 Crossmatch Case Care Discussed with: Patient, Consultants, Nursing Staff, Respiratory Therapy, Chief Procurement Officer Education/Counseling Given To: Patient Education/Counseling Given Regarding: Diagnosis, Treatment, Prognosis, Follow Up Total Time: 45 min . Critical Care: No Code: 27650 (12+)
[2016-08-28] MEDS ORDERED: FUROSEMIDE 20 MG/2 ML VIAL IV ONE (16:00)
[2016-08-28] MEDS: ACETAMINOPHEN 325 MG/TAB TABLET PO PRN (16:14)
[2016-08-28] MEDS: PANTOPRAZOLE 40 MG TAB PO SCH (16:15)
[2016-08-28] MEDS ORDERED: CITALOPRAM HBR PO SCH (21:00)
[2016-08-29] MEDS: ACETAMINOPHEN 325 MG/TAB TABLET PO PRN (00:19)
[2016-08-29 04:51] LABS: MPV 7.1 fL (7.4-10.4)
[2016-08-29 05:11] LABS: BLOOD UREA NITROGEN 45 MG/DL (7-17); CALCIUM 7.9 MG/DL (8.4-10.2); CALCULATED OSMOLALITY 265 MOs/Kg (270-290); CHLORIDE 99 mEq/L (98-107); GLUCOSE 95 mg/dL (70-99); SODIUM LEVEL 131 mEq/L (137-146)
[2016-08-29 05:22] LABS: SEG NEUTROPHIL 86 % (45-76)
[2016-08-29] MEDS: PANTOPRAZOLE 40 MG TAB PO SCH (05:23)
[2016-08-29] MEDS: NS 1,000 ML IV SCH ×2 (05:24→08:17)
--- NOTE | 2016-08-29 07:42 | PCM.GIPROG ---
Progress Note (GI) Chief Complaint: Ms Lopez is a 70-year-old female with metastatic ovarian cancer halfway patient was referred to the emergency room after reported episode of hematemesis. Upper endoscopy 08-28-16 shows erosive esophagitis erosive gastritis small antral ulcer with no active bleeding H pylori testing is pending Ms Lopez 70-year-old female halfway resident with ovarian cancer metastatic to the bone and abdomen. She is has post radiation therapy she does report some lower abdominal discomfort. This continues. She is having loose bowel movements but no evidence of C difficile colitis.. She is not reporting heartburn or indigestion. Her appetite and p.o. intake a marginal . She does have a appointed guardian. Ms Breen was here yesterday and her endoscopic results were discussed with her. She was also discussed with Dr. Cheung. . By labs no evidence of iron deficiency, B12 or folate deficiency as the etiology of her anemia - Physical Exam Vital Signs: Temperature: 98.3 F (08/29/16 07:24) HR: 90 (08/29/16 07:24) RR: 18 (08/29/16 07:24) BP: 116/79 (08/29/16 07:24) Pulse Ox: 94 (08/29/16 07:24) General: Alert, No acute distress HEENT: negative: Icteric Sclera Respiratory: negative: Accessory Muscle Use Gastrointestinal: Soft, Bowel Sounds, Tender (Lower abdominal). negative: Distended (Obese) Extremities: Edema Skin: Warm,Dry and Intact Neurological: Normal speech Psych/Mental Status: Confused Result Diagrams: 08/29/16 04:10 08/29/16 04:10 Additional Lab/DI Findings: Laboratory Tests 08/27/16 01:50 Iron 33.0 L TIBC 141 L % Saturation 23.4 Ferritin 1160.0 H Vitamin B12 > 1000 H - Impression and Plan (1) Esophagitis Acute K20.9 - ESOPHAGITIS, UNSPECIFIED (2) Antral ulcer Acute K25.9 - GASTRIC ULCER, UNSP ACUTE OR CHRONIC, W/O HEMOR OR PERF (3) Anemia Acute D64.9 - ANEMIA, UNSPECIFIED other cause chronic disease, neoplastic D63.0 - Anemia in neoplastic disease (4) Ovarian cancer Acute C56.9 - MALIGNANT NEOPLASM OF UNSPECIFIED OVARY unspecified laterality C56.9 - Malignant neoplasm of unspecified ovary Comment: With meds. Follow by cleaning handyman-Onc (5) Leukocytosis Acute D72.829 - ELEVATED WHITE BLOOD CELL COUNT, UNSPECIFIED Present on Admission: Yes (6) Renal insufficiency Acute N28.9 - DISORDER OF KIDNEY AND URETER, UNSPECIFIED Present on Admission: Yes (7) Bilateral lower extremity edema Chronic R60.0 - LOCALIZED EDEMA Present on Admission: Yes (8) Coagulopathy Acute D68.9 - COAGULATION DEFECT, UNSPECIFIED (9) Dementia associated with other underlying disease Chronic F02.80 - DEMENTIA IN OTH DISEASES CLASSD ELSWHR W/O BEHAVRL DISTURB Present on Admission: Yes without behavioral disturbance F02.80 - Dementia in other diseases classified elsewhere without behavioral disturbance Plan: 1. Ppi therapy b.i.d. for 1 month then reasonable to reduce 1 a day if blood counts remain stable 2. Monitor hemoglobin and for active bleeding 3. Continue care for other medical problems 4. Hold further endoscopic for GI evaluations given her history of metastatic cancer unless her condition changes 5. Transfuse as needed
--- NOTE | 2016-08-29 11:47 | PCM.DCS92 ---
- Final/Secondary Discharge Diagnosis (1) GI bleed Resolved K92.2 - GASTROINTESTINAL HEMORRHAGE, UNSPECIFIED unspecified gastrointestinal hemorrhage type K92.2 - Gastrointestinal hemorrhage, unspecified Comment: Continue PPI. Status post EGD. Advance diet as tolerated (2) Anemia associated with acute blood loss Resolved D62 - ACUTE POSTHEMORRHAGIC ANEMIA Present on Admission: Yes Comment: Received 2 units of pooled red blood cells ,overall hemoglobin improved and stable (3) Acute renal failure Chronic N17.9 - ACUTE KIDNEY FAILURE, UNSPECIFIED Present on Admission: Yes with other specified pathological lesion N17.8 - Other acute kidney failure Comment: Continue gentle IV hydration monitor BMP avoid any nephrotoxins (4) Dementia associated with other underlying disease Chronic F02.80 - DEMENTIA IN OTH DISEASES CLASSD ELSWHR W/O BEHAVRL DISTURB Present on Admission: Yes without behavioral disturbance F02.80 - Dementia in other diseases classified elsewhere without behavioral disturbance Plan/Goal/Comment: Continue supportive care (5) Bilateral lower extremity edema Chronic R60.0 - LOCALIZED EDEMA Present on Admission: Yes Plan/Goal/Comment: Continue Lasix (6) Ovarian cancer Acute C56.9 - MALIGNANT NEOPLASM OF UNSPECIFIED OVARY unspecified laterality C56.9 - Malignant neoplasm of unspecified ovary Comment: Stage IV with widely spread metastatic disease. Continue hospice care Discharge Disposition: Half-Way Facility Discharge Condition: Improved Cognitive Discharge Status: Altered Mental Status Fuctional Discharge Status: Wheelchair Assistance, Fall Risk, Deconditioning Physician Follow up/Referrals: Chacho Cheung MD [Primary Care Provider] - One Week Home Medications / New Prescriptions: New Omeprazole 40 mg PO BID #60 capsule. Oxycodone Immediate Release [Oxycodone Immediate Release (OxyIR)] 5 mg PO Q6H PRN #60 tab PRN Reason: Pain Senna Concentrate [Senokot] 2 tab PO DAILY #60 tablet Continue Furosemide [Lasix] 60 mg PO 0800 Albuterol/Ipratropium Neb [Duoneb] 3 ml NEB Q2H PRN PRN Reason: Wheezing Multivitamin [Multiple Vitamins] 1 each PO DAILY Acetaminophen [Tylenol] 650 mg PO QID Ondansetron HCl [Zofran] 4 mg PO Q4H PRN PRN Reason: Nausea/Vomiting Tramadol HCl [Ultram] 50 mg PO Q6H PRN #100 tablet PRN Reason: Moderate To Severe Pain Discontinued Acetaminophen Tablet [TYLENOL Tablet] 650 mg PO Q6H PRN #100 tablet PRN Reason: Mild Pain Or Fever Above 100.4 Sennosides/Docusate Sodium [Senokot-S Tablet] 1 each PO BID PRN PRN Reason: Constipation Calcium Carbonate/Vitamin D3 [Oyster Shell Calcium-Vit D Tab] 1 each PO BID O2 Device: Room Air Diet at Discharge: As Tolerated, Regular, High Fiber Activity: As Tolerated, Limited Call Office For: Fever over 101 F Discontinue use of:: Alcohol, All Illegal Substances, All Types of Tobacco - DC Summary Notes Hospital Course Note:: Discharge summary on patient named ROSENDO ARELLANO admitted to [facility] on 08/27/16 by Pepe Lima MD. Date of discharge is []. Patient was initially brought to emergency room from [facility] on August 27 for evaluation of abdominal pain nausea and vomiting blood and blood clots. Please refer the admission for further details. ED workup was undertaken her initial hemoglobin was 7.8. Patient was admitted to monitor bed GI consultation was obtained. Chest x-ray showed minimal left basilar atelectasis but no pneumonia abdominal films showed unremarkable bowel gas pattern but no intra-abdominal free air. On August 28 patient has undergone upper endoscopy which showed erosive esophagitis small antral ulcer and erosive gastritis and hiatal hernia. Continuation of twice a day PPI therapy was recommended. Patient required blood transfusion and throughout hospitalization she has received 2 units of pooled red blood cells after her hemoglobin was above 10. Most of the outpatient regimen for chronic medical conditions was continued. Urine culture showed no growth and stool culture was negative for an there Rajesh neck pathogens, testing for C diff was negative. Her creatinine has oscillating between 1.6 and 2.0. Patient POA was kept fully abreast on clinical situation and results of EGD were discussed with her in details. Given advance ovarian cancer and advanced dementia severe debility arrangements were made for patient to return to [facility] facility so hospice care could be resumed. It was felt that by August 29 patient has reached maximum benefit of inpatient therapy and in clinically improved condition she has been transferred back to [facility] Total Time: 40 min. Code: 59169 (>30min.) - Physical Exam Vital Signs: Last Vital Signs Temp 98.3 F 08/29/16 07:24 Pulse 75 08/29/16 11:05 Resp 18 08/29/16 07:24 BP 116/79 08/29/16 07:24 Pulse Ox 94 08/29/16 07:24 Oxygen Pulse Oxygen Saturation 94 O2 Device Room Air Oxygen Flow Rate 2 Fraction of Inspired Oxygen ( FIO2) Constitutional: Alert, Confused Oriented to: Person, Place - HEENT Head: negative: Deformity, Laceration Eye: Normal. negative: Conjunctival Injection, Pale Conjunctiva Oropharynx: Normal, Other (NO DRIED BLOOD SEEN IN OROPHARYNX.). negative: Drooling, Exudate, Membranes Dry, Red, Tonsillar Hypertrophy, [place] ENT EAC: Normal TMJ: Normal Nose: negative: Bleeding, Congestion, Discharge - Respiratory/Cardiovascular Respiratory: Diminished, Rhonchi. negative: Accessory Muscle Use Cardiovascular: Normal, Systolic murmur - GI Auscultation: Normal Palpation: Normal Tenderness: Non tender Rectal Exam: Deferred, Heme negative stool - Exam Deferred: Yes - Musculoskeletal Back: Normal, No Palpable Step-off Extremities: Cyanosis, Edema, Radial Pulse (PALPABLE) - Integumentary Skin: Normal, Warm, Dry Lymphatics: Normal - Neurologic Memory Impaired: Short-term, Long-term Motor Function: Abnormal Cranial Nerve: Normal Cerebellar: Ataxia Mood Description: Anxious Thought: Coherent Perception: Normal - Other Exam Other Exam Findings: Allergies No Known Allergies Allergy (Verified 08/27/16 09:16) 08/29/16 04:10 08/29/16 04:10 Last Vital Signs Temp 98.3 F 08/29/16 07:24 Pulse 75 08/29/16 11:05 Resp 18 08/29/16 07:24 BP 116/79 08/29/16 07:24 Pulse Ox 94 08/29/16 07:24 Abnormal Lab Results 08/29/16 08/29/16 04:10 04:10 WBC 19.7 H RBC 3.42 L Hgb 10.0 L Hct 30.6 L MCHC 32.8 L RDW 16.7 H MPV 7.1 L Seg Neuts % (Manual) 86 H Lymphocytes % (Manual) 6 L Absolute Neutrophils 17.34 H Sodium 131 L BUN 45 H Creatinine 2.00 H Estimated GFR (MDRD) 25 L Calculated Osmolality 265 L Calcium 7.9 L Discharge Home Medication List Acetaminophen [Tylenol] 650 mg PO QID 08/27/16 [History Confirmed 08/27/16] Albuterol/Ipratropium Neb [Duoneb] 3 ml NEB Q2H PRN 08/27/16 [History Confirmed 08/27/16] Furosemide [Lasix] 60 mg PO 0800 08/27/16 [History Confirmed 08/27/16] Multivitamin [Multiple Vitamins] 1 each PO DAILY 08/27/16 [History Confirmed 01/05] Ondansetron HCl [Zofran] 4 mg PO Q4H PRN 08/27/16 [History Confirmed 08/27/16] Omeprazole 40 mg PO BID #60 capsule. 08/29/16 [Rx] Oxycodone Immediate Release [Oxycodone Immediate Release (OxyIR)] 5 mg PO Q6H PRN #60 tab 08/29/16 [Rx] Senna Concentrate [Senokot] 2 tab PO DAILY #60 tablet 08/29/16 [Rx] Tramadol HCl [Ultram] 50 mg PO Q6H PRN #100 tablet 08/29/16 [Rx] New Discharge Medications (Rx) Omeprazole 40 mg PO BID #60 capsule. 08/29/16 [Rx] Oxycodone Immediate Release [Oxycodone Immediate Release (OxyIR)] 5 mg PO Q6H PRN #60 tab 08/29/16 [Rx] Senna Concentrate [Senokot] 2 tab PO DAILY #60 tablet 08/29/16 [Rx] Tramadol HCl [Ultram] 50 mg PO Q6H PRN #100 tablet 08/29/16 [Rx] Initial Vitals Temperature 98.3 F 08/27/16 01:18 Pulse Rate 108 08/27/16 01:18 Respiratory Rate 18 08/27/16 01:18 Blood Pressure 129/71 08/27/16 01:18 Pulse Oxygen Saturation 94 08/27/16 01:18 Microbiology 08/28/16 07:42 Biopsy - Stomach CLOtest - Final 08/27/16 08:25 Stool Stool Culture - Final No normal gram-negative fecal adebayo present; No Salmonella, Shigella, or E.coli 0157 isolated 08/27/16 08:25 Stool Campylobacter Antigen Assay - Final NEGATIVE ("NORMAL" value = "NEGATIVE".) 08/27/16 08:25 Stool Shiga Toxin I - Final 08/27/16 08:25 Stool Shiga Toxin II - Final 08/27/16 08:25 Urine - Clean Catch - Midstream Urine Culture - Final No growth <10,00O CFU/ml 08/27/16 08:25 Stool Stool Consistency (SHANNON) - Final 08/27/16 08:25 Stool Stool Mucus (SHANNON) - Final 08/27/16 08:25 Stool Clostridium difficile (PCR) - Final NEGATIVE A single negative test for C. difficile indicates the likelihood that this organism is causing the diarrheal illness is extremely low. Therefore, repeat testing is strongly discouraged. If a new diarrheal illness occurs more than 7 days after the initial negative test, then sending a single repeat specimen may be indicated. ([employer] C. difficile/Epi by PCR: Performance characteristics have not been established for patients <2 years of age - per personal clothing laundry aide limitations.) 08/27/16 08:25 Stool Clostridium difficile 027 (PCR) - Final PRESUMPTIVE NEGATIVE (For in vitro diagnostic use only. [id number] results are NOT intended to guide treatment of C. difficile infections. (Infection Control Hosp Epidemiol 2010;31:431-455)) Active Problems Anemia (Acute) D64.9 Anemia associated with acute blood loss (Acute) D62 Received 2 units of pooled red blood cells ,overall hemoglobin improved and stable Antral ulcer (Acute) K25.9 Coagulopathy (Acute) D68.9 Esophagitis (Acute) K20.9 GI bleed (Acute) K92.2 Continue PPI. Status post EGD. Advance diet as tolerated Leukocytosis (Acute) D72.829 Ovarian cancer (Acute) C56.9 With meds. Follow by ob/gyn nurse-Onc Renal insufficiency (Acute) N28.9 Upper GI bleed (Acute) K92.2 Patient is symptomatic at this time. Report of hemoptysis (but patient does not remember). Hemoglobin level is low. Plan: Admit to hospital. Start IV pantoprazole q12 hours. Monitor H/H. May need EGD. Consult GI. If Hemoglobin is less than 7, then: Transfuse 2 units PRBC's. Pretreat with Tylenol 650 mg PO x 1 and Benadryl 25 mg IV x 1. Keep 1 unit on hand at all times.
[2016-08-29 11:59] VITALS: BP 129/72; PULSE 83; TEMP 98.6
[2016-08-29] MEDS ORDERED: HEPARIN 500 UNITS/5 ML (100 UNITS/ML) SYR FLUSH ONE (15:00)
== END 2016-08-29 15:36 | DRG 378 ==
LOC: ED 01:10 → PCU 03:28
PROVIDERS: ADMIT Internal Medicine; ATTEND Internal Medicine
PROC: 30243N1 Transfusion of Nonautologous Red Blood Cells into Central Vein, Percutaneous Approach (ICD-10-PCS; 2016-08-27)
PROC: 0DB68ZX Excision of Stomach, Via Natural or Artificial Opening Endoscopic, Diagnostic (ICD-10-PCS; principal; 2016-08-28)
DX: K92.2 Gastrointestinal hemorrhage, unspecified (principal); D62 Acute posthemorrhagic anemia; N17.9 Acute kidney failure, unspecified; C79.51 Secondary malignant neoplasm of bone; C79.89 Secondary malignant neoplasm of other specified sites; D68.9 Coagulation defect, unspecified; C56.9 Malignant neoplasm of unspecified ovary; K22.10 Ulcer of esophagus without bleeding; Z66 Do not resuscitate; R60.0 Localized edema; Z51.5 Encounter for palliative care; Z60.2 Problems related to living alone; S01.81XA Laceration without foreign body of other part of head, initial encounter; W19.XXXA Unspecified fall, initial encounter; Y92.129 Unspecified place in nursing home as the place of occurrence of the external cause; R62.7 Adult failure to thrive; F02.80 Dementia in other diseases classified elsewhere, unspecified severity, without behavioral disturbance, psychotic disturbance, mood disturbance, and anxiety; M19.90 Unspecified osteoarthritis, unspecified site; K25.9 Gastric ulcer, unspecified as acute or chronic, without hemorrhage or perforation; Z90.710 Acquired absence of both cervix and uterus; Z92.3 Personal history of irradiation; K44.9 Diaphragmatic hernia without obstruction or gangrene
CPT/HCPCS: 36415; 36430; 43239; 51798; 71010; 74020; 80048; 80053; 82272; 82607; 82728; 82746; 83540; 83550; 83735; 84484; 85007; 85027; 85610; 85730; 86850; 86900; 86901; 86920; 87040; 87045; 87046; 87081; 87086; 87427; 87449; 87493; 93005; 96361; 96372; 96374; 96375; 99152; 99284; J1642; J1940; J2175; J2250; J2405; J3430; J3490; P9016; S0164